=== PATIENT | male | born 1965 ===

== ENCOUNTER → 2017-01-03 | Outpatient (CLI) | payer BC ==
--- NOTE | 2017-01-03 07:37 | US ---
EXAMINATION TYPE: US kidneys/renal and bladder DATE OF EXAM: 01/03/2017 7:24 AM COMPARISON:See PACS CT abdomen April 06, 2016. CLINICAL HISTORY: Elevated Potassium E87.5. EXAM MEASUREMENTS: Echogenic circular structure noted in liver. Right Kidney: 9.8 x 5.8 x 6.0 cm Left Kidney: 9.7 x 5.1 x 5.4 cm TECHNOLOGIST IMPRESSION: wnl Right Kidney: No hydronephrosis or masses seen, inferior pole somewhat obscured by bowel gas Left Kidney: No hydronephrosis or masses seen, inferior pole somewhat obscured by bowel gas Bladder: wnl There is no evidence for hydronephrosis at this point in time. No nephrolithiasis is seen. No luz marina s are identified on images saved. Evaluation of lower poles noted suboptimal due to shadowing from hetal wel gas bilaterally per technologist The urinary bladder is anechoic. Bilateral ureteral jets are no t seen. The technologist notes a 1.2 cm round hyperechoic structure likely corresponding to hypodense lesion on CT right hepatic lobe too small to further characterize favor small hemangioma. IMPRESSION: No hydronephrosis is evident bilaterally.
== END | disposition home or self-care (01) ==
LOC: RADUSWWP 06:58
PROVIDERS: ATTEND Family Medicine
DX: E87.5 Hyperkalemia (principal)
CPT/HCPCS: 76770

== ENCOUNTER → 2017-09-26 | Outpatient (CLI) | payer BC ==
--- NOTE | 2017-09-26 19:13 | CT ---
EXAMINATION TYPE: CT angio chest DATE OF EXAM: 09/26/2017 COMPARISON: 08/30/2016 HISTORY: Patient poor historian. Patient has no complaints at time of service. Patient had prior he art/aorta surgery. Bicuspid aortic valve. CT DLP: 843 mGycm CONTRAST: CTA thoracic aorta with 3-D reconstruction is performed and without and with IV Contrast, patient inj ected with 100 mL of Omnipaque 350. Contrast CTA of the thoracic aorta was performed from the lung apex through the upper abdomen. 3D re construction imaging obtained at a separate workstation. CT Chest: THORACIC AORTA: Again noted is postsurgical change of ascending thoracic aorta. There is ascending th oracic aortic aneurysm stable at 4.3 cm AP dimension. No evidence for complicating factor. No evidenc e for dissection. Aortic arch and descending thoracic aorta are of normal caliber. LUNGS: The lungs are clear and free of infiltrate or atelectasis. No pulmonary nodule or mass is det ected. No pleural effusion or CT evidence of interstitial lung disease. MEDIASTINUM: No evidence for mediastinal hematoma. The heart is not enlarged. No evidence for med iastinal mass or adenopathy. HILAR STRUCTURES: No evidence for mass. No hilar adenopathy is appreciated. OTHER: No significant abnormality. IMPRESSION- Stable ascending thoracic aortic aneurysm.
== END | disposition home or self-care (01) ==
LOC: RADCTMAIN 17:00
PROVIDERS: ATTEND Internal Medicine Interventional Cardiology
DX: I71.2 Thoracic aortic aneurysm, without rupture (principal)
CPT/HCPCS: 71275; Q9967

== ENCOUNTER → 2019-03-13 | Outpatient (CLI) | payer BC ==
--- NOTE | 2019-03-14 09:49 | CT ---
EXAMINATION TYPE: CT angio thor/abd pel aorta DATE OF EXAM: 03/13/2019 COMPARISON: 09/26/2017 and 04/06/2016 HISTORY: AAA, congenital insufficiency of aortic valve CT DLP: 915.1 mGycm. Automated Exposure Control for Dose Reduction was Utilized. CONTRAST: CT scan of the thorax, abdomen and pelvis is performed with IV Contrast, patient injected with 100 mL of Isovue 370. 3-D reformats of the vascular were performed at a separate workstation and submitted for review. FINDINGS: LUNGS: There is a new left 3 mm pulmonary nodule on series 5 image 27 that appears more conspicuous w hen measured on series 8 image 59 (coronal as there is a vague groundglass opacity measuring 8.7 mm. Minimal bibasilar dependent subsegmental atelectasis is seen. No pulmonary masses, focal consolidatio ns, or pleural effusion. No pneumothorax. The tracheobronchial tree is patent. MEDIASTINUM: The aortic root measures 4.4 cm and ascending thoracic aorta measures 4.4 cm. There is s imilar aneurysmal dilatation of the ascending thoracic aorta as this measured 4.3 cm the prior exam o f 09/26/2017. The unenhanced images demonstrate no evidence of intramural hematoma. Annuloplasty has b een performed of the aorta. There are no greater than 1 cm hilar or mediastinal lymph nodes. Heart is mildly enlarged without pericardial effusion. Small hiatal hernia seen within the posterior mediasti num. Very few punctate coronary artery calcifications are seen. OTHER: There are median sternotomy wires. LIVER/GB: Angiographic phase of the examination limits evaluation of the liver. However, no focal hep atic mass nor intrahepatic biliary ductal dilatation are seen. No radiopaque calculi in the gallbladd er. PANCREAS: No significant abnormality is seen. SPLEEN: Unremarkable. ADRENALS: No nodularity or thickening. KIDNEYS: Kidneys enhance symmetrically. No hydronephrosis. BOWEL: There is redundancy of the sigmoid colon and moderate degree fecal stasis, limiting evaluation of the bowel. Stomach displays circumferential wall thickening in the fundus and upper body however this likely relates to incomplete distention and peristalsis. If there is further concern endoscopy c ould be performed. GENITAL ORGANS: No gross abnormality seen. LYMPH NODES: No greater than 1cm abdominal or pelvic lymph nodes are appreciated. OSSEOUS STRUCTURES: There is some sclerosis of the pubic bone and femoral acetabular joints, likely o n a degenerative basis. Nonspecific 6 mm sclerotic focus is seen within the right hemisacrum. Multile lucas facet arthropathy is seen throughout the lumbar spine. VASCULAR: The ostia of the celiac artery, superior mesenteric artery, and renal arteries are patent. The inferior mesenteric artery also appears patent and unremarkable. Common iliac arteries, internal iliac arteries and external iliac arteries are patent and nonaneurysmal. IMPRESSION: 1. Similar aneurysmal dilatation of the aortic root and ascending thoracic aorta both measuring 4.4 c m. 2. New left-sided pulmonary nodule measuring 3 mm on axial images however groundglass opacity measuri ng up to 8.7 mm is seen on coronal images surrounding this nodule and therefore short-term follow-up in 6 months is recommended for reevaluation.
== END | disposition home or self-care (01) ==
LOC: RADCTMAIN 17:10
PROVIDERS: ATTEND Internal Medicine Interventional Cardiology
DX: I71.2 Thoracic aortic aneurysm, without rupture (principal); R91.1 Solitary pulmonary nodule; Q23.1 Congenital insufficiency of aortic valve
CPT/HCPCS: 71275; 74174; Q9967

== ENCOUNTER 2019-07-16 13:44 | Emergency (ER) | payer BC ==
[2019-07-16 14:01] VITALS: BP 123/76; RESP 16; TEMP 97.3
--- NOTE | 2019-07-16 14:21 | ED ---
General Adult HPI - General Chief complaint: Extremity Injury, Upper Stated complaint: Shoulder pain Source: patient, RN notes reviewed, old records reviewed Mode of arrival: ambulatory Limitations: no limitations - History of Present Illness Initial comments: 54-year-old male patient passed medical history of hypertension, grafting of ascending aortic aneurysm presents ED chief complaint of right shoulder pain for approximately 5 days. 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 Patient reports that range of motion, working makes his pain worse. Patient denies any pain at rest. Patient denies any chest pain shortness of breath. Patient denies any recent falls or trauma. Systemic: Pt denies fatigue, fever/chills, rash. Pt denies weakness, night sweats, weight loss. Neuro: Pt denies headache, visual disturbances, syncope or pre-syncope. HEENT: Pt denies ocular discharge or irritation, otalgia, rhinorrhea, phary ngitis or notable lymphadenopathy. Cardiopulmonary: Pt denies chest pain, SOB, heart palpitations, dyspnea on exertion. Abdominal/GI: Pt denies abdominal pain, n/v/d. : Pt denies dysuria, burning w/ urination, frequency/urgency. Denies new onset urinary or bowel incontinence. MSK: Pt denies myalgia, loss of strength or function in extremities. Neuro: Pt denies new onset weakness, paresthesias. - Related Data Home Medications Medication Instructions Recorded Confirmed Enalapril Maleate [Vasotec] 10 mg PO BID 03/29/15 07/16/19 Aspirin EC [Ecotrin Low Dose] 81 mg PO DAILY 07/16/19 07/16/19 Atenolol [Tenormin] 25 mg PO DAILY 07/16/19 07/16/19 LORazepam [Ativan] 1 mg PO DAILY 07/16/19 07/16/19 Pravastatin Sodium [Pravachol] 10 mg PO HS 07/16/19 07/16/19 Allergies Allergy/AdvReac Type Severity Reaction Status Date / Time atenolol Allergy Rash/Hives Verified 07/16/19 14:10 enalapril maleate Allergy Rash/Hives Verified 07/16/19 14:10 [From Vasotec] enalaprilat dihydrate Allergy Rash/Hives Verified 07/16/19 14:10 [From Vasotec] Review of Systems ROS Statement: Those systems with pertinent positive or pertinent negative responses have been documented in the HPI. ROS Other: All systems not noted in ROS Statement are negative. Past Medical History Past Medical History: Hyperlipidemia, Hypertension History of Any Multi-Drug Resistant Organisms: None Reported Additional Past Surgical History / Comment(s): Ascending Aortic Aneurysm graft Past Psychological History: Anxiety Smoking Status: Never smoker Past Alcohol Use History: Daily Past Drug Use History: None Reported General Exam - General Exam Comments Initial Comments: Constitutional: NAD, AOX3, Pt has pleasant affect. HEENT: NC/AT, trachea midline, neck supple, no lymphadenopathy. Posterior pharynx non erythematous, without exudates. External ears appear normal, without discharge. Mucous membranes moist. Eyes PERRLA, EOM intact. There is no scleral icterus. No pallor noted. Cardiopulmonary: RRR, no murmurs, rubs or gallops, no JVD noted. Lungs CTAB in anterior and posterior davila. No peripheral edema. Abdominal exam: Abdomen soft and non-distended. Abdomen non-tender to palpation in all 4 quadrants. Bowel sounds active in LLQ. No hepatosplenomegaly. No ecchymosis Neuro: CN II-XII grossly intact. No nuchal rigidity. No raccon eyes, no wu sign, no hemotympanum. No cervical spinal tenderness. MSK: R Painful arc positive. Shoulder mild tenderness to palpation and posterior aspect. Full active range of motion. Pulses intact and equal, capillary refill less than 2 seconds. No posterior calf tenderness bilaterally, homans sign negative bilaterally. Posterior tibialis and radial pulse +2 bilaterally. Sensation intact in upper and lower extremities. Full active ROM in upper and lower extremities, 5/5 stregnth. Limitations: no limitations Course Vital Signs 07/16/19 13:56 Temperature 97.3 F L Pulse Rate 52 L Respiratory 16 Rate Blood Pressure 123/76 O2 Sat by Pulse 100 Oximetry Medical Decision Making - Medical Decision Making 54-year-old male patient passed medical history of hypertension, grafting of ascending aortic aneurysm presents ED chief complaint of right shoulder pain for approximately 5 days. 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 Patient reports that range of motion, working makes his pain worse. Patient denies any pain at rest. Patient denies any chest pain shortness of breath. Patient denies any recent falls or trauma. Patient vital signs stable, afebrile. Physical exam displayed: R Painful arc positive. Shoulder mild tenderness to palpation and posterior aspect. Full active range of motion. Pulses intact and equal, capillary refill less than 2 seconds. No posterior calf tenderness bilaterally, homans sign negative bilaterally. Posterior tibialis and radial pulse +2 bilaterally. Sensation intact in upper and lower extremities. Full active ROM in upper and lower extremities, 5/5 stregnth. Plain film of scapula and shoulders displayed AC joint arthropathy. Patient discharged with orthopedic follow-up. Return precautions discussed. Case discussed with Dr. South. Disposition Clinical Impression: Shoulder pain Disposition: HOME SELF-CARE Condition: Stable Instructions (If sedation given, give patient instructions): Musculoskeletal Pain (ED) Additional Instructions: Patient to adhere to previously discussed treatment plan and will take medication(s) as directed. Patient to follow up with PCP in 1-2 days. Patient to return to ED if symptoms do not improve. Follow-up with primary care provider and orthopedic consult tomorrow. Use Tylenol and Motrin as needed for pain. Return to ER if condition worsens. Is patient prescribed a controlled substance at d/c from ED?: No Referrals: Thiago Fernandez MD [Primary Care Provider] - 1-2 days Isauro Pérez MD [STAFF PHYSICIAN] - 1-2 days
--- NOTE | 2019-07-16 14:31 | XR ---
EXAMINATION TYPE: XR shoulder complete RT DATE OF EXAM: 07/16/2019 COMPARISON: NONE HISTORY: Pain TECHNIQUE: Three views are submitted. FINDINGS: The osseous structures are intact. There is no acute fracture or dislocation. Arthropathy of the AC joint IMPRESSION: 1. AC joint arthropathy
--- NOTE | 2019-07-16 14:32 | XR ---
EXAMINATION TYPE: XR scapula RT DATE OF EXAM: 07/16/2019 COMPARISON: NONE HISTORY: Pain TECHNIQUE: 2 views submitted FINDINGS: AC joint arthropathy noted. Osseous structures intact. IMPRESSION: AC joint arthropathy
[2019-07-16 15:24] VITALS: PULSE 62
== END 2019-07-16 15:24 | disposition home or self-care (01) ==
LOC: EC 13:44
DX: M25.511 Pain in right shoulder (principal); M12.811 Other specific arthropathies, not elsewhere classified, right shoulder; E78.5 Hyperlipidemia, unspecified; I10 Essential (primary) hypertension; F41.9 Anxiety disorder, unspecified; Z88.8 Allergy status to other drugs, medicaments and biological substances; Z79.82 Long term (current) use of aspirin; Z79.899 Other long term (current) drug therapy; Z86.79 Personal history of other diseases of the circulatory system; Z95.818 Presence of other cardiac implants and grafts; X50.0XXA Overexertion from strenuous movement or load, initial encounter
CPT/HCPCS: 99284

== ENCOUNTER 2019-11-28 15:46 | Emergency (ER) | payer BC ==
[2019-11-28 16:03] VITALS: BP 180/85; PULSE 74; RESP 20; TEMP 99.4
[2019-11-28] MEDS ORDERED: ACETAMINOPHEN TAB 325 MG TAB PO STA (16:07)
--- NOTE | 2019-11-28 16:25 | XR ---
EXAMINATION TYPE: XR chest 2V DATE OF EXAM: 11/28/2019 COMPARISON: Chest x-ray June 01, 2015. CTA March 13, 2019 HISTORY: Cough for one day. TECHNIQUE: Frontal and lateral views of the chest are obtained. FINDINGS: Overlying sternal wires are redemonstrated. There is no focal air space opacity, pleural ef fusion, or pneumothorax seen. The cardiac silhouette size remains enlarged. The osseous structures are intact. IMPRESSION: Cardiomegaly without new suspicious acute pulmonary process.
--- NOTE | 2019-11-28 17:01 | ED ---
URI HPI - General Chief Complaint: Upper Respiratory Infection Stated Complaint: cough/congestion Time Seen by Provider: 11/28/19 16:06 Source: patient Mode of arrival: ambulatory Limitations: no limitations - History of Present Illness Initial Comments: 54-year-old male presenting today for chief complaint of cough congestion chills bodyaches x 24 hours. Patient states that he has had a cough congestion chills and body aches the past 24 hours he states it feels as though he has had a fever but has not recorded his temperature. Patient states that the cough has been increasing especially at night denies hemoptysis, chest pain, shortness of breath like swelling nausea vomiting abdominal pain or diarrhea. Patient denies any throat or ear pain. Patient was concerned he has influenza and presented to the ER for evaluation. patient denies any other complaints. On arrival appears nontoxic. HR WNL. No signs of distress. Afebrile. No medications taken prior to arrival such an antipyretics. - Related Data Home Medications Medication Instructions Recorded Confirmed Enalapril Maleate [Vasotec] 10 mg PO BID 03/29/15 07/16/19 Aspirin EC [Ecotrin Low Dose] 81 mg PO DAILY 07/16/19 07/16/19 Atenolol [Tenormin] 25 mg PO DAILY 07/16/19 07/16/19 LORazepam [Ativan] 1 mg PO DAILY 07/16/19 07/16/19 Pravastatin Sodium [Pravachol] 10 mg PO HS 07/16/19 07/16/19 Previous Rx's Medication Instructions Recorded Azithromycin [Zithromax Z-pack] 0 mg PO DIRECTED #6 tab 11/28/19 Allergies Allergy/AdvReac Type Severity Reaction Status Date / Time atenolol Allergy Rash/Hives Verified 11/28/19 16:03 enalapril maleate Allergy Rash/Hives Verified 11/28/19 16:03 [From Vasotec] enalaprilat dihydrate Allergy Rash/Hives Verified 11/28/19 16:03 [From Vasotec] Review of Systems ROS Statement: Those systems with pertinent positive or pertinent negative responses have been documented in the HPI. ROS Other: All systems not noted in ROS Statement are negative. Past Medical History Past Medical History: Hyperlipidemia, Hypertension History of Any Multi-Drug Resistant Organisms: None Reported Additional Past Surgical History / Comment(s): Ascending Aortic Aneurysm graft Past Psychological History: Anxiety Smoking Status: Never smoker Past Alcohol Use History: Occasional Past Drug Use History: None Reported General Exam - General Exam Comments Initial Comments: General: The patient is awake and alert, in no distress, appears nontoxic. Eye: +3 mm pupils are equal, round and reactive to light, extra-ocular movements are intact. No nystagmus. There is normal conjunctiva bilaterally. No signs of icterus. No photophobia Ears, nose, mouth and throat: There are moist mucous membranes and no oral lesions. Oropharynx was mildly erythematous there is no tonsillar enlargement exudates or lesions. Uvula midline. Tympanic membranes are not erythematous or is no effusions bulging or retraction. No tenderness to palpation of the mastoid. No anterior cervical lymphadenopathy. Rhinorrhea, clear and bilateral nares. No tripoding, no drooling. Neck: The neck is supple, there is no tenderness or JVD. No nuchal rigidity Cardiovascular: There is a regular rate and rhythm. No murmur, rub or gallop is appreciated. Respiratory: Lungs are clear to auscultation, respirations are non-labored, breath sounds are equal. No wheezes, stridor, rales, or rhonchi. No retractions or abdominal breathing. Gastrointestinal: Soft, non-distended, non-tender abdomen without masses or organomegaly noted. There is no rebound or guarding present. Bowel sounds are unremarkable. Musculoskeletal: Normal ROM, no tenderness. Strength 5/5. Sensation intact. Radial pulses equal bilaterally 2+. Neurological: A&O x 3. CN II-XII intact grossly, There are no obvious motor or sensory deficits. Coordination appears grossly intact. Speech appears normal, no muffling. Skin: Skin is warm and dry and no rashes or lesions are noted. No extremity edema Psychiatric: Cooperative Limitations: no limitations Course Vital Signs 11/28/19 16:00 Temperature 99.4 F Pulse Rate 74 Respiratory 20 Rate Blood Pressure 180/85 O2 Sat by Pulse 97 Oximetry Medical Decision Making - Medical Decision Making 54-year-old male presenting for cough congestion and body aches. Concern for influenza. Denies chest pain shortness of breath. Influenza negative. Chest x-ray clear of focalized infiltrates, no acute process appreciated. Patient is not immunocompromised. Has obvious URI symptoms. After discussing case/patient VS and PMH with attending Dr. Pena we feel at this time patient is stable for discharge with close PCP f/u and strict return parameters. Patient is agreeable to this care plan and was discharged appearing well with azithromycin. - Lab Data Lab Results 11/28/19 Range/Units 16:10 Influenza Type A RNA Not Detected (Not Detectd) Influenza Type B (PCR) Not Detected (Not Detectd) Disposition Clinical Impression: Cough, Congestion of nasal sinus, Body aches Disposition: HOME SELF-CARE Condition: Good Instructions (If sedation given, give patient instructions): Upper Respiratory Infection (ED) Additional Instructions: Please use medication as discussed. Please follow-up with family doctor in the next 2 days. Please return to emergency room if the symptoms increase or worsen or for any other concerns-persistent fever, chest pain, SOB, worsening symptoms- return to ER. Prescriptions: Azithromycin [Zithromax Z-pack] 0 mg PO DIRECTED #6 tab Is patient prescribed a controlled substance at d/c from ED?: No Referrals: Thiago Fernandez MD [Primary Care Provider] - 1-2 days Time of Disposition: 16:59
== END 2019-11-28 17:15 | disposition home or self-care (01) ==
LOC: EC 15:46
DX: R05 Cough (principal); R09.81 Nasal congestion; R52 Pain, unspecified; E78.5 Hyperlipidemia, unspecified; I10 Essential (primary) hypertension; F41.9 Anxiety disorder, unspecified; Z79.82 Long term (current) use of aspirin; Z79.899 Other long term (current) drug therapy; Z88.8 Allergy status to other drugs, medicaments and biological substances
CPT/HCPCS: 71046; 87502; 99283

== ENCOUNTER → 2021-03-22 | Outpatient (CLI) | payer BC ==
--- NOTE | 2021-03-22 21:16 | CT ---
EXAMINATION TYPE: CT angio chest DATE OF EXAM: 03/22/2021 COMPARISON: 09/26/2017 HISTORY: Follow up for thoracic aortic aneurysm. CT DLP: 667.4 mGycm CONTRAST: CTA thoracic aorta with 3-D reconstruction is performed and without and with IV Contrast, patient inj ected with 100ml mL of Isovue 370. Contrast CTA of the thoracic aorta was performed from the lung apex through the upper abdomen. 3D re construction imaging obtained at a separate workstation. CT Chest: THORACIC AORTA: 4.3 cm ascending thoracic aortic aneurysm unchanged from prior study of 4.3 cm as wel l. Postsurgical change noted of the ascending thoracic aorta. The remainder of the thoracic aorta inc luding the arch and descending components are of normal caliber. LUNGS: The lungs are clear and free of infiltrate or atelectasis. No pulmonary nodule or mass is det ected. No pleural effusion or CT evidence of interstitial lung disease. MEDIASTINUM: No evidence for mediastinal hematoma. The heart is not enlarged. No evidence for med iastinal mass or adenopathy. HILAR STRUCTURES: No evidence for mass. No hilar adenopathy is appreciated. OTHER: No significant abnormality. IMPRESSION- Stable ascending thoracic aortic aneurysm.
== END | disposition home or self-care (01) ==
LOC: RADCTMAIN 18:45
PROVIDERS: ATTEND Internal Medicine Interventional Cardiology
DX: I71.2 Thoracic aortic aneurysm, without rupture (principal)
CPT/HCPCS: 71275; Q9967

== ENCOUNTER → 2021-04-07 | Outpatient (CLI) | payer BC ==
--- NOTE | 2021-04-08 04:53 | MR ---
EXAMINATION TYPE: MR kidney wo/w con DATE OF EXAM: 04/07/2021 COMPARISON: Renal ultrasound 01/03/2017. HISTORY: Hypertension. CONTRAST: Standard multiplanar, multisequence MRI departmental protocol utilizing 8 mL intravenous Gadavist sherie olinium contrast. Kidneys have fairly normal size and contour. Right kidney measures 10.8 cm in length. Left kidney waylon sures 9.9 cm in length. There is no hydronephrosis. There is no evidence of a renal mass. There is no adrenal mass. Liver and gallbladder appear intact. The bile ducts are not dilated. There is 10 mm rounded area of f luid signal in the posterior right lobe of the liver without enhancement and consistent with simple h epatic cyst. The spleen is intact. Pancreas appears normal. Pancreatic duct is normal. The bile ducts are not dilated. The stomach is intact. There is no evidence of pleural effusion. There is no sign o f pericardial effusion. There is no sign of retroperitoneal adenopathy. There is no ascites. There is no sign of a bowel obst ruction. Contrast images show normal enhancement of the kidneys. There is normal enhancement of the p ortal venous system. IMPRESSION: Kidneys appear normal. No evidence of renal mass or obstruction. No renal atrophy.
== END | disposition home or self-care (01) ==
LOC: RADMRIMAIN 18:09
PROVIDERS: ATTEND Internal Medicine
DX: I10 Essential (primary) hypertension (principal)
CPT/HCPCS: 74183; A9585

== ENCOUNTER 2022-03-08 16:10 | Emergency (ER) | payer BC ==
[2022-03-08 16:41] VITALS: BP 145/76; PULSE 63; RESP 18; TEMP 98.7
[2022-03-08] MEDS ORDERED: KETOROLAC 15 MG/ML 1 ML VIAL IM STA (17:02)
[2022-03-08] MEDS ORDERED: DEXAMETHASONE SOD PHOSPHATE 10 MG/ML 1 ML VIAL IM STA (17:02)
--- NOTE | 2022-03-08 17:29 | ED ---
General Adult HPI - General Chief complaint: Extremity Injury, Lower Stated complaint: Right Leg Pain and weakness Time Seen by Provider: 03/08/22 16:43 Source: patient Mode of arrival: ambulatory - History of Present Illness Initial comments: Patient is a 57-year-old male presenting with chief complaint of right thigh pain. Pain started approximately one week ago, states that as the week has gone on the pain has become more consistent. It is a sharp stabbing pain that comes on when standing or walking. Located primarily on the anterior and lateral thigh. Once patient is sitting and resting the pain dissipates. Patient denies any trauma or injury. Denies any numbness, tingling, weakness. He has not been taking supportive treatment at home such as [id number] pain medication. No pain below the knee or above the hip. Patient states he has full range of motion of the hip and no loss of sensation. - Related Data Home Medications Medication Instructions Recorded Confirmed Enalapril Maleate [Vasotec] 10 mg PO BID 03/29/15 03/08/22 Aspirin EC [Ecotrin Low Dose] 81 mg PO DAILY 07/16/19 03/08/22 LORazepam [Ativan] 1 mg PO BID 07/16/19 03/08/22 atenoloL [Tenormin] 25 mg PO DAILY 07/16/19 03/08/22 Pravastatin Sodium [Pravachol] 20 mg PO HS 03/08/22 03/08/22 Vitamin D3 1.25 Mg 1.25 mg PO Q90D 03/08/22 03/08/22 amLODIPine [Norvasc] 2.5 mg PO DAILY 03/08/22 03/08/22 Previous Rx's Medication Instructions Recorded Cyclobenzaprine [Flexeril] 10 mg PO TID PRN #20 tab 03/08/22 methylPREDNISolone [Medrol Dose 4 mg PO DIRECTED #1 packet 03/08/22 Pack] Allergies Allergy/AdvReac Type Severity Reaction Status Date / Time atenolol Allergy Rash/Hives, Verified 03/08/22 17:50 (Generic only, can tolerate brand name) enalapril maleate Allergy Rash/Hives, Verified 03/08/22 17:50 [From Vasotec] (Generic only, can tolerate brand name) enalaprilat dihydrate Allergy Rash/Hives, Verified 03/08/22 17:50 [From Vasotec] (Generic only, can tolerate brand name) Review of Systems ROS Statement: Those systems with pertinent positive or pertinent negative responses have been documented in the HPI. ROS Other: All systems not noted in ROS Statement are negative. Past Medical History Past Medical History: Hyperlipidemia, Hypertension History of Any Multi-Drug Resistant Organisms: None Reported Additional Past Surgical History / Comment(s): Ascending Aortic Aneurysm graft Past Psychological History: Anxiety Smoking Status: Never smoker Past Alcohol Use History: Occasional Past Drug Use History: None Reported General Exam Limitations: no limitations General appearance: alert, in no apparent distress Head exam: Present: atraumatic, normocephalic, normal inspection Eye exam: Present: normal appearance, EOMI. Absent: scleral icterus Neck exam: Present: normal inspection Extremities exam: Present: normal inspection, full ROM. Absent: tenderness, pedal edema, joint swelling Neurological exam: Present: alert, oriented X3, CN II-XII intact Psychiatric exam: Present: normal affect, normal mood Skin exam: Present: warm, dry, intact, normal color. Absent: rash Course Vital Signs 03/08/22 16:35 Temperature 98.7 F Pulse Rate 63 Respiratory 18 Rate Blood Pressure 145/76 O2 Sat by Pulse 98 Oximetry Medical Decision Making - Medical Decision Making Patient is a 57-year-old male presenting with chief complaint of right thigh pain. Pain is been persistent for 3 days, pain is brought on by a standing or ambulating. It is sharp in character and relieved with rest. It is located primarily on the anterior lateral surface of the thigh. Does not extend beyond the hip or knee. On examination patient has full range of motion of the hip and knee. No tenderness on palpation, full sensation intact. X-ray shows no acute osseous pathology. Mild osteoarthritic changes of the hip. 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 Educated the patient on these findings. In the ER the patient was given Toradol, Decadron, and Norflex. He is being sent home with a prescription for cyclobenzaprine and a Medrol Dosepak. Follow-up with PCP this week. Report back to ER with any worsening symptoms. He may take Motrin, Tylenol, or apply heat or ice for pain control. I educated the patient on return parameters and answered all questions. Patient conveyed verbal understanding and agreed to the plan. - Radiology Data Radiology results: report reviewed X-ray shows no acute osseous pathology. Mild osteoarthritic changes of the hip. 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 Disposition Clinical Impression: Spasm of muscle Disposition: HOME SELF-CARE Condition: Good Additional Instructions: Follow-up with primary care this week. Inform PCP of findings suggestive of osteopath striata of distal right femur at follow up. Take medication as prescribed. Report back to ER with any worsening symptoms, including but not limited to increased pain, loss of range of motion, loss of sensation. Prescriptions: Cyclobenzaprine [Flexeril] 10 mg PO TID PRN #20 tab PRN Reason: Muscle Spasm methylPREDNISolone [Medrol Dose Pack] 4 mg PO DIRECTED #1 packet Is patient prescribed a controlled substance at d/c from ED?: No Referrals: Thiago Fernandez MD [Primary Care Provider] - 1-2 days Time of Disposition: 18:40
--- NOTE | 2022-03-08 18:10 | XR ---
EXAMINATION TYPE: XR femur RT DATE OF EXAM: 03/08/2022 5:14 PM INDICATION: Patient age:Male; 57 years old; Reason for study: Pain; COMPARISON: None TECHNIQUE: The right femur was examined in AP lateral and oblique. projections. FINDINGS: There are vertical lines through the femur most pronounced distal femur. No evidence of acu te osseous pathology, joint dislocation, or soft tissue swelling. Quadriceps enthesophyte noted at th e superior patella. Mild degenerative changes of the right hip with osteophyte formation present.. IMPRESSION: 1. No acute osseous pathology. 2. Mild osteoarthritic changes of the hip. 3. 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
[2022-03-08] MEDS ORDERED: ORPHENADRINE 30 MG/ML 2 ML VIAL IVP STA (18:18)
[2022-03-08] MEDS ORDERED: ORPHENADRINE 30 MG/ML 2 ML VIAL IM STA (18:29)
== END 2022-03-08 18:53 | disposition home or self-care (01) ==
LOC: EC 16:10
DX: M62.838 Other muscle spasm (principal); I10 Essential (primary) hypertension; Z88.8 Allergy status to other drugs, medicaments and biological substances
CPT/HCPCS: 73552; 99284; 96372; J1100; J2360; J1885

== ENCOUNTER → 2022-03-24 | Outpatient (CLI) | payer BC ==
--- NOTE | 2022-03-25 07:20 | CT ---
EXAMINATION TYPE: CT angio chest DATE OF EXAM: 03/24/2022 COMPARISON: 03/22/2021 HISTORY: Postprocedural state. Patient has no complaints at time of scan. History of aortic graft. CT DLP: 1043 mGycm CONTRAST: CTA thoracic aorta with 3-D reconstruction is performed and without and with IV Contrast, patient inj ected with 100ml mL of Isovue 370. Contrast CTA of the thoracic aorta was performed from the lung apex through the upper abdomen. 3D re construction imaging obtained at a separate workstation. CT Chest: THORACIC AORTA: Postoperative changes redemonstrated ascending thoracic aorta. Aortic root measures 3 .7 cm. Ascending thoracic aorta measures 4.4 cm versus 4.3 cm previously. Aortic arch and descending thoracic aorta are of normal caliber. No evidence for para-aortic hematoma. No dissection evident. LUNGS: The lungs are clear and free of infiltrate or atelectasis. No pulmonary nodule or mass is det ected. No pleural effusion or CT evidence of interstitial lung disease. MEDIASTINUM: No evidence for mediastinal hematoma. The heart is enlarged. No evidence for mediast inal mass or adenopathy. HILAR STRUCTURES: No evidence for mass. No hilar adenopathy is appreciated. OTHER: No significant abnormality. IMPRESSION- Stable ascending thoracic aortic aneurysm and thoracic aortic graft.
== END | disposition home or self-care (01) ==
LOC: RADCTMAIN 15:25
PROVIDERS: ATTEND Internal Medicine Interventional Cardiology
DX: Z98.890 Other specified postprocedural states (principal)
CPT/HCPCS: 71275; Q9967

== ENCOUNTER → 2023-02-11 | Outpatient (CLI) | payer BC ==
[2023-02-11 17:42] LABS: African American GFR (CKD) 103.4 (60.0-200.0); Anion Gap 12.4 mmol/L (10.00-18.00); BUN/Creat Ratio 17.8 Ratio (12.00-20.00); Blood Urea Nitrogen 16.8 mg/dL (9.0-27.0); Calcium 9.6 mg/dL (8.7-10.3); Carbon Dioxide 23.6 mmol/L (20.0-27.5); Non-African American GFR(CKD) 89.2 (60.0-200.0)
== END | disposition home or self-care (01) ==
LOC: LABWHC1 08:02
PROVIDERS: ATTEND Nurse Practitioner
DX: I10 Essential (primary) hypertension (principal)
CPT/HCPCS: 36415; 80048

== ENCOUNTER 2023-06-28 13:55 | Emergency (ER) | payer BC ==
[2023-06-28] MEDS ORDERED: LORazepam 2 MG/ML INJ IV STA (14:27)
--- NOTE | 2023-06-28 14:27 | ED ---
General Adult HPI - General Chief complaint: Arrhythmia/Palpitations Stated complaint: poss panic attack - tachycardia Time Seen by Provider: 06/28/23 14:05 Source: patient, RN notes reviewed, old records reviewed Mode of arrival: ambulatory Limitations: no limitations - History of Present Illness Initial comments: This is a 58-year-old male who presents to the emergency department complaining that he has a history of anxiety and something at work was very embarrassing to him and he just felt like he needs to get out of the place. Patient states he felt like his heart rate raced a little but not really pounding hard. Patient denies chest pain. Patient denies difficulty breathing or shortness of breath per patient denies any lightheadedness or dizziness. Patient thinks it's just a little bit of a panic attack but he wanted come in and check it out. Patient states his bicuspid aortic valve and needs to be replaced and he states he had repair on his aortic aneurysm and he is starting to develop a second aneurysm secondary to the aortic stenosis. Patient denies lightheadedness dizziness. Patient denies having pain anywhere. - Related Data Home Medications Medication Instructions Recorded Confirmed Enalapril Maleate [Vasotec] 10 mg PO BID 03/29/15 06/28/23 Aspirin EC [Ecotrin Low Dose] 81 mg PO DAILY 07/16/19 06/28/23 LORazepam [Ativan] 1 mg PO DAILY 07/16/19 06/28/23 atenoloL [Tenormin] 25 mg PO DAILY 07/16/19 06/28/23 Pravastatin Sodium [Pravachol] 20 mg PO HS 03/08/22 06/28/23 amLODIPine [Norvasc] 2.5 mg PO DAILY 03/08/22 06/28/23 Cholecalciferol (Vitamin D3) 1,250 mcg PO Q30D 06/28/23 06/28/23 [Decara (50,000 Iu)] Allergies Allergy/AdvReac Type Severity Reaction Status Date / Time atenolol Allergy Rash/Hives, Verified 06/28/23 14:34 (Generic only, can tolerate brand name) enalapril maleate Allergy Rash/Hives, Verified 06/28/23 14:34 [From Vasotec] (Generic only, can tolerate brand name) enalaprilat dihydrate Allergy Rash/Hives, Verified 06/28/23 14:34 [From Vasotec] (Generic only, can tolerate brand name) Review of Systems ROS Statement: Those systems with pertinent positive or pertinent negative responses have been documented in the HPI. ROS Other: All systems not noted in ROS Statement are negative. Past Medical History Past Medical History: Hyperlipidemia, Hypertension History of Any Multi-Drug Resistant Organisms: None Reported Additional Past Surgical History / Comment(s): Ascending Aortic Aneurysm graft Past Psychological History: Anxiety Smoking Status: Never smoker Past Alcohol Use History: Occasional Past Drug Use History: None Reported General Exam - General Exam Comments Initial Comments: nGENERAL: Patient is well-developed and well-nourished. Patient is nontoxic and well- hydrated and is in no acute distress. ENT: Neck is soft and supple. No significant lymphadenopathy is noted. Oropharynx is clear. Moist mucous membranes. Neck has full range of motion without eliciting any pain. EYES: The sclera were anicteric and conjunctiva were pink and moist. Extraocular movements were intact and pupils were equal round and reactive to light. Eyelids were unremarkable. PULMONARY: Unlabored respirations. Good breath sounds bilaterally. No audible rales rhonchi or wheezing was noted. CARDIOVASCULAR: There is a regular rate and rhythm without any murmurs gallops or rubs. ABDOMEN: Soft and nontender with normal bowel sounds. SKIN: Skin is clear with no lesions or rashes and otherwise unremarkable. NEUROLOGIC: Patient is alert and oriented x3. Cranial nerves II through XII are grossly intact. Motor and sensory are also intact. Normal speech, volume and content. Symmetrical smile. MUSCULOSKELETAL: Normal extremities with adequate strength and full range of motion. No lower extremity swelling or edema. No calf tenderness. LYMPHATICS: No significant lymphadenopathy is noted PSYCHIATRIC: Patient is mildly anxious Limitations: no limitations Course Vital Signs 06/28/23 06/28/23 06/28/23 14:03 14:15 14:30 Temperature 98.6 F Pulse Rate 57 L 57 L 55 L Respiratory 20 24 24 Rate Blood Pressure 156/87 167/71 161/83 O2 Sat by Pulse 99 99 99 Oximetry 06/28/23 15:00 Temperature Pulse Rate 48 L Respiratory 12 Rate Blood Pressure 161/83 O2 Sat by Pulse 98 Oximetry Medical Decision Making - Medical Decision Making EKG as interpreted by myself EKG shows A. fib and 35 bpm QRS is 100 QT interval is 440 QTC is 428. Patient's EKG shows no ST segment elevation or depression Was pt. sent in by a medical professional or institution (ALETHA Moreno, BIG DATA DEVELOPER, urgent care, hospital, or detention...) When possible be specific @ -No Did you speak to anyone other than the patient for history (EMS, parent, family, police, friend...)? What history was obtained from this source @ -I spoke with the and she was in agreement that the patient appeared to be having a panic attack Did you review nursing and triage notes (agree or disagree)? Why? @ -I reviewed and agree with nursing and triage notes Were old charts reviewed (outside hosp., previous admission, EMS record, old EKG, old radiological studies, urgent care reports/EKG's, detention records)? Report findings @ -No old charts were reviewed Differential Diagnosis (chest pain, altered mental status, abdominal pain women, abdominal pain men, vaginal bleeding, weakness, fever, dyspnea, syncope, headache, dizziness, GI bleed, back pain, seizure, CVA, palpatations, mental health, musculoskeletal)? @ -Differential Mental Health Depression, anxiety, bipolar, psychosis, schizophrenia, borderline personality, situational depression, adjustment disorder, behavioral disorder, brain tumor, malingering, substance abuse, encephalopathy, medication reaction, dementia, hypothyroidism, degenerative neurologic disorder, lupus.... This is not meant to be all-inclusive list EKG interpreted by me (3pts min.). @ -As above X-rays interpreted by me (1pt min.). @ -Chest x-ray showed no acute abnormality CT interpreted by me (1pt min.). @ -None done U/S interpreted by me (1pt. min.). @ -None done What testing was considered but not performed or refused? (CT, X-rays, U/S, labs)? Why? @ -None What meds were considered but not given or refused? Why? @ -None Did you discuss the management of the patient with other professionals (professionals i.e. ALETHA Moreno, BIG DATA DEVELOPER, lab, RT, psych nurse, social media analyst, craft center director, teacher, senior administrative services officer, porter sample case)? Give summary @ -No Was smoking cessation discussed for >3mins.? @ -No Was critical care preformed (if so, how long)? @ -No Were there social determinants of health that impacted care today? How? (Homelessness, low income, unemployed, alcoholism, drug addiction, transportation, low edu. Level, literacy, decrease access to med. care, longterm, rehab)? @ -No Was there de-escalation of care discussed even if they declined (Discuss DNR or withdrawal of care, Hospice)? DNR status @ -No What co-morbidities impacted this encounter? (DM, HTN, Smoking, COPD, CAD, Cancer, CVA, ARF, Chemo, Hep., AIDS, mental health diagnosis, sleep apnea, morbid obesity)? @ -None Was patient admitted / discharged? Hospital course, mention meds given and route, prescriptions, significant lab abnormalities, going to OR and other pertinent info. @ -Patient received an Ativan while in the emergency department and he stated he felt back to his baseline. Lab work was done and it essentially was normal and patient felt comfortable going home at this time he will follow-up and try to get a primary medical care doctor they can prescribe some Ativan. Undiagnosed new problem with uncertain prognosis? @ -No Drug Therapy requiring intensive monitoring for toxicity (Heparin, Nitro, Insu basilio, Cardizem)? @ -No Were any procedures done? @ -No Diagnosis/symptom? @ -Anxiety Acute, or Chronic, or Acute on Chronic? @ -Acute Uncomplicated (without systemic symptoms) or Complicated (systemic symptoms)? @ -Complicated Side effects of treatment? @ -No Exacerbation, Progression, or Severe Exacerbation? @ -No Poses a threat to life or bodily function? How? (Chest pain, [place], [place], pneumonia, PE, COPD, DKA, ARF, appy, cholecystitis, CVA, Diverticulitis, Homicidal, Suicidal, threat to staff... and all critical care pts) @ -No - Lab Data Result diagrams: 06/28/23 14:24 06/28/23 14:24 Lab Results 06/28/23 06/28/23 06/28/23 Range/Units 14:24 14:24 14:24 WBC 5.0 (3.8-10.6) k/uL RBC 4.41 (4.30-5.90) m/uL Hgb 11.9 L (13.0-17.5) gm/dL Hct 35.5 L (39.0-53.0) % MCV 80.5 (80.0-100.0) fL MCH 27.0 (25.0-35.0) pg MCHC 33.5 (31.0-37.0) g/dL RDW 17.8 H (11.5-15.5) % Plt Count 267 (150-450) k/uL MPV 7.3 Neutrophils % 68 % Lymphocytes % 22 % Monocytes % 8 % Eosinophils % 1 % Basophils % 1 % Neutrophils # 3.4 (1.3-7.7) k/uL Lymphocytes # 1.1 (1.0-4.8) k/uL Monocytes # 0.4 (0-1.0) k/uL Eosinophils # 0.1 (0-0.7) k/uL Basophils # 0.0 (0-0.2) k/uL Hypochromasia Slight Anisocytosis Slight Microcytosis Slight D-Dimer 0.26 (<0.60) mg/L FEU Sodium 133 L (137-145) mmol/L Potassium 3.9 (3.5-5.1) mmol/L Chloride 101 (98-107) mmol/L Carbon Dioxide 19 L (22-30) mmol/L Anion Gap 13 mmol/L BUN 16 (9-20) mg/dL Creatinine 0.87 (0.66-1.25) mg/dL Est GFR (CKD-EPI)AfAm >90 (>60 ml/min/1.73 sqM) Est GFR (CKD-EPI)NonAf >90 (>60 ml/min/1.73 sqM) Glucose 118 H (74-99) mg/dL Calcium 9.6 (8.4-10.2) mg/dL Magnesium 2.2 (1.6-2.3) mg/dL Total Bilirubin 0.7 (0.2-1.3) mg/dL AST 26 (17-59) U/L ALT 20 (4-49) U/L Alkaline Phosphatase 57 (38-126) U/L Troponin I (0.000-0.034) ng/mL Total Protein 7.2 (6.3-8.2) g/dL Albumin 4.4 (3.5-5.0) g/dL 06/28/23 Range/Units 14:24 WBC (3.8-10.6) k/uL RBC (4.30-5.90) m/uL Hgb (13.0-17.5) gm/dL Hct (39.0-53.0) % MCV (80.0-100.0) fL MCH (25.0-35.0) pg MCHC (31.0-37.0) g/dL RDW (11.5-15.5) % Plt Count (150-450) k/uL MPV Neutrophils % % Lymphocytes % % Monocytes % % Eosinophils % % Basophils % % Neutrophils # (1.3-7.7) k/uL Lymphocytes # (1.0-4.8) k/uL Monocytes # (0-1.0) k/uL Eosinophils # (0-0.7) k/uL Basophils # (0-0.2) k/uL Hypochromasia Anisocytosis Microcytosis D-Dimer (<0.60) mg/L FEU Sodium (137-145) mmol/L Potassium (3.5-5.1) mmol/L Chloride (98-107) mmol/L Carbon Dioxide (22-30) mmol/L Anion Gap mmol/L BUN (9-20) mg/dL Creatinine (0.66-1.25) mg/dL Est GFR (CKD-EPI)AfAm (>60 ml/min/1.73 sqM) Est GFR (CKD-EPI)NonAf (>60 ml/min/1.73 sqM) Glucose (74-99) mg/dL Calcium (8.4-10.2) mg/dL Magnesium (1.6-2.3) mg/dL Total Bilirubin (0.2-1.3) mg/dL AST (17-59) U/L ALT (4-49) U/L Alkaline Phosphatase (38-126) U/L Troponin I <0.012 (0.000-0.034) ng/mL Total Protein (6.3-8.2) g/dL Albumin (3.5-5.0) g/dL Disposition Clinical Impression: Acute anxiety Disposition: HOME SELF-CARE Condition: Good Instructions (If sedation given, give patient instructions): Anxiety (ED) Is patient prescribed a controlled substance at d/c from ED?: No Referrals: None,Stated [Primary Care Provider] - 1-2 days Forms: PH Area PCPs Time of Disposition: 16:03
[2023-06-28 14:32] LABS: Anisocytosis Slight; Basophils % (A) 1 %; Eosinophils # (A) 0.1 k/uL (0-0.7); Eosinophils % (A) 1 %; HCT 35.5 % (39.0-53.0); HGB 11.9 gm/dL (13.0-17.5); Hypochromasia Slight; Lymphocytes # (A) 1.1 k/uL (1.0-4.8); Lymphocytes % (A) 22 %; MCHC 33.5 g/dL (31.0-37.0); MCV 80.5 fL (80.0-100.0); Mean Platelet Volume 7.3; Microcytosis Slight; Monocytes # (A) 0.4 k/uL (0-1.0); Monocytes % (A) 8 %; Neutrophils # (A) 3.4 k/uL (1.3-7.7); Neutrophils % (A) 68 %; Platelet Count 267 k/uL (150-450); RBC 4.41 m/uL (4.30-5.90); RDW 17.8 % (11.5-15.5)
--- NOTE | 2023-06-28 14:37 | XR ---
EXAMINATION TYPE: XR chest 2V DATE OF EXAM: 06/28/2023 2:33 PM COMPARISON: Chest radiographs from 11/28/2019, CTA chest 03/24/2022 TECHNIQUE: XR chest 2V Frontal and lateral views of the chest. CLINICAL INDICATION:Male, 58 years old with history of Chest Pain; FINDINGS: Lungs/Pleura: There is no evidence of pleural effusion, focal consolidation, or pneumothorax. Pulmonary vascularity: Unremarkable. Heart/mediastinum: Cardiomediastinal silhouette is enlarged and stable. Musculoskeletal: No acute osseous pathology. Midline sternotomy wires are noted. Similar fractured lo wer sternotomy wires. IMPRESSION: Cardiomegaly without new suspicious acute pulmonary process.
[2023-06-28 14:54] LABS: ALT 20 U/L (4-49); AST 26 U/L (17-59); African American GFR (CKD) >90 (>60 ml/min/1.73 sqM); Albumin 4.4 g/dL (3.5-5.0); Alkaline Phosphatase 57 U/L (38-126); Anion Gap 13 mmol/L; Blood Urea Nitrogen 16 mg/dL (9-20); Calcium 9.6 mg/dL (8.4-10.2); Carbon Dioxide 19 mmol/L (22-30); Chloride 101 mmol/L (98-107); Glucose 118 mg/dL (74-99); Magnesium 2.2 mg/dL (1.6-2.3); Non-African American GFR(CKD) >90 (>60 ml/min/1.73 sqM); Potassium 3.9 mmol/L (3.5-5.1); Sodium 133 mmol/L (137-145); Total Bilirubin 0.7 mg/dL (0.2-1.3); Total Protein 7.2 g/dL (6.3-8.2)
[2023-06-28 16:25] VITALS: BP 131/79; PULSE 51; RESP 18; TEMP 98.4
== END 2023-06-28 16:25 | disposition home or self-care (01) ==
LOC: EC 13:55
DX: F41.9 Anxiety disorder, unspecified (principal); E78.5 Hyperlipidemia, unspecified; I10 Essential (primary) hypertension; Z79.82 Long term (current) use of aspirin; Z88.6 Allergy status to analgesic agent; Z88.8 Allergy status to other drugs, medicaments and biological substances; Z79.899 Other long term (current) drug therapy
CPT/HCPCS: 36415; 93005; 85379; 80053; 83735; 84484; 85025; 71046; 99285; 96374; J2060

== ENCOUNTER 2023-07-09 13:22 | Emergency (ER) | payer BC ==
--- NOTE | 2023-07-09 14:03 | ED ---
Animal Bite HPI - General Chief Complaint: Animal Bite Stated Complaint: Dog Bite Time Seen by Provider: 07/09/23 13:42 Source: patient, RN notes reviewed Mode of arrival: ambulatory - History of Present Illness Initial Comments: Patient is a 58-year-old male presenting the emergency room for further evaluation of injury by a dog to his left lower extremity that occurred around 10:30 this morning. He had to wait to present to the emergency room due to needing to wait for the [employer] department to come to file a report as the animal that attacked him was not his. He reports that he suddenly felt the animal on his leg he was unsure if he was bitten or not. No puncture wounds with erythemic scratches and single scratched abrasion consistent with dog scratch rather than bite. He is unsure of his tetanus status. He denies any injury to any other location. He denies any other complaints or concerns this time. - Related Data Home Medications Medication Instructions Recorded Confirmed Enalapril Maleate [Vasotec] 10 mg PO BID 03/29/15 06/28/23 Aspirin EC [Ecotrin Low Dose] 81 mg PO DAILY 07/16/19 06/28/23 LORazepam [Ativan] 1 mg PO DAILY 07/16/19 06/28/23 atenoloL [Tenormin] 25 mg PO DAILY 07/16/19 06/28/23 Pravastatin Sodium [Pravachol] 20 mg PO HS 03/08/22 06/28/23 amLODIPine [Norvasc] 2.5 mg PO DAILY 03/08/22 06/28/23 Cholecalciferol (Vitamin D3) 1,250 mcg PO Q30D 06/28/23 06/28/23 [Decara (50,000 Iu)] Previous Rx's Medication Instructions Recorded Sulfamethox-Tmp 800-160Mg [Bactrim 1 tab PO Q12HR 5 Days #10 tab 07/09/23 DS 800-160 mg] Allergies Allergy/AdvReac Type Severity Reaction Status Date / Time atenolol Allergy Rash/Hives, Verified 07/09/23 13:39 (Generic only, can tolerate brand name) enalapril maleate Allergy Rash/Hives, Verified 07/09/23 13:39 [From Vasotec] (Generic only, can tolerate brand name) enalaprilat dihydrate Allergy Rash/Hives, Verified 07/09/23 13:39 [From Vasotec] (Generic only, can tolerate brand name) Review of Systems ROS Statement: Those systems with pertinent positive or pertinent negative responses have been documented in the HPI. ROS Other: All systems not noted in ROS Statement are negative. Past Medical History Past Medical History: Hyperlipidemia, Hypertension History of Any Multi-Drug Resistant Organisms: None Reported Additional Past Surgical History / Comment(s): Ascending Aortic Aneurysm graft- 1999 Past Psychological History: Anxiety Smoking Status: Never smoker Past Alcohol Use History: Occasional Past Drug Use History: None Reported General Exam Limitations: no limitations General appearance: alert, in no apparent distress Head exam: Present: atraumatic, normocephalic, normal inspection Eye exam: Present: normal appearance, PERRL, EOMI. Absent: scleral icterus, conjunctival injection, periorbital swelling ENT exam: Present: normal exam, mucous membranes moist Neck exam: Present: normal inspection, full ROM Respiratory exam: Absent: respiratory distress, accessory muscle use Cardiovascular Exam: Present: regular rate Left Lower Leg exam: Present: abrasion (3 linear erythremia without skin puncture and additional 1 linear scratch with rupture of skin minimal depth no indication for closure.) Back exam: Present: normal inspection Neurological exam: Present: alert, oriented X3, CN II-XII intact Psychiatric exam: Present: normal affect, normal mood Skin exam: Present: abrasion (As above) Course Vital Signs 07/09/23 07/09/23 13:36 14:27 Temperature 98.2 F 98 F Pulse Rate 58 L 64 Respiratory 18 16 Rate Blood Pressure 136/75 127/86 O2 Sat by Pulse 99 99 Oximetry Medical Decision Making - Medical Decision Making Was pt. sent in by a medical professional or institution (, PA, SPRING COILER, urgent care, hospital, or retirement...) When possible be specific @ -No Did you speak to anyone other than the patient for history (EMS, parent, family, police, friend...)? What history was obtained from this source @ -No Did you review nursing and triage notes (agree or disagree)? Why? @ -I reviewed and agree with nursing and triage notes Were old charts reviewed (outside hosp., previous admission, EMS record, old EKG, old radiological studies, urgent care reports/EKG's, retirement records)? Report findings @ -No old charts were reviewed Differential Diagnosis (chest pain, altered mental status, abdominal pain women, abdominal pain men, vaginal bleeding, weakness, fever, dyspnea, syncope, headache, dizziness, GI bleed, back pain, seizure, CVA, palpatations, mental health, musculoskeletal)? @ -not applicable EKG interpreted by me (3pts min.). @ -None done X-rays interpreted by me (1pt min.). @ -None done CT interpreted by me (1pt min.). @ -None done U/S interpreted by me (1pt. min.). @ -None done What testing was considered but not performed or refused? (CT, X-rays, U/S, labs)? Why? @ -None What meds were considered but not given or refused? Why? @ -None Did you discuss the management of the patient with other professionals (professionals i.e. , PA, SPRING COILER, lab, RT, psych nurse, social security benefits interviewer, medical radiation therapist, teacher, [employer] plans staff officer, family caseworker)? Give summary @ -No Was smoking cessation discussed for >3mins.? @ -No Was critical care preformed (if so, how long)? @ -No Were there social determinants of health that impacted care today? How? (Homelessness, low income, unemployed, alcoholism, drug addiction, transportation, low edu. Level, literacy, decrease access to med. care, alf, rehab)? @ -No Was there de-escalation of care discussed even if they declined (Discuss DNR or withdrawal of care, Hospice)? DNR status @ -No What co-morbidities impacted this encounter? (DM, HTN, Smoking, COPD, CAD, Cancer, CVA, ARF, Chemo, Hep., AIDS, mental health diagnosis, sleep apnea, morbid obesity)? @ -None Was patient admitted / discharged? Hospital course, mention meds given and route, prescriptions, significant lab abnormalities, going to OR and other pertinent info. @ -58-year-old male presenting the emergency room for further evaluation of injury by a dog to his left lower extremity that occurred around 10:30 this morning. He had to wait to present to the emergency room due to needing to wait for the [employer] department to come to file a report as the a nimal that attacked him was not his. He reports that he suddenly felt the animal on his leg he was unsure if he was bitten or not. Exam consistent with scratching from animal no evidence of bite. Unsure of tetanus status will update tetanus. Patient very concerned regarding potential for infection. Discussed low probability of infection however patient is concerned regarding bicuspid aortic valve and is insistent need for antibiotic therapy. Will place on empiric Bactrim course. No indication for any diagnostic testing or laboratory studies. No indication for rabies vaccination. Encouraged to keep abrasion clean and dry. Questions and concerns answered. Return parameters to the emergency room discussed. Will discharge home in stable condition on empiric course of Bactrim to treat abrasion related to an animal scratch advising follow-up with primary care provider. Undiagnosed new problem with uncertain prognosis? @ -No Drug Therapy requiring intensive monitoring for toxicity (Heparin, Nitro, Insulin, Cardizem)? @ -No Were any procedures done? @ -No Diagnosis/symptom? @ -Animal scratch Acute, or Chronic, or Acute on Chronic? @ -Acute Uncomplicated (without systemic symptoms) or Complicated (systemic symptoms)? @ -Uncomplicated Side effects of treatment? @ -No Exacerbation, Progression, or Severe Exacerbation? @ -No Poses a threat to life or bodily function? How? (Chest pain, [place], [place], pneumonia, PE, COPD, DKA, ARF, appy, cholecystitis, CVA, Diverticulitis, Homicidal, Suicidal, threat to staff... and all critical care pts) @ -No Case discussed with Dr. Garcia. Disposition Clinical Impression: Animal scratch Disposition: HOME SELF-CARE Condition: Stable Instructions (If sedation given, give patient instructions): Abrasion (ED) Additional Instructions: Complete course of antibiotic as prescribed. Keep wound clean and dry. Please follow-up with your primary care provider. Please return to the Emergency Department if symptoms worsen or any other concerns. Prescriptions: Sulfamethox-Tmp 800-160Mg [Bactrim DS 800-160 mg] 1 tab PO Q12HR 5 Days #10 tab Is patient prescribed a controlled substance at d/c from ED?: No Referrals: None,Stated [Primary Care Provider] - 1-2 days Time of Disposition: 14:03
[2023-07-09] MEDS ORDERED: DIPH,PERTUS(ACELL)TETVAC-LF 0.5 ML VIAL IM ONE (14:14)
[2023-07-09 14:29] VITALS: BP 127/86; PULSE 64; RESP 16; TEMP 98
== END 2023-07-09 15:14 | disposition home or self-care (01) ==
LOC: EC 13:22
DX: S80.812A Abrasion, left lower leg, initial encounter (principal); E78.5 Hyperlipidemia, unspecified; I10 Essential (primary) hypertension; F41.9 Anxiety disorder, unspecified; Z79.899 Other long term (current) drug therapy; Z79.82 Long term (current) use of aspirin; Z23 Encounter for immunization; W54.0XXA Bitten by dog, initial encounter
CPT/HCPCS: 90471; 90715; 99283

== ENCOUNTER → 2023-07-12 | Outpatient (CLI) | payer BC ==
--- NOTE | 2023-07-13 14:18 | CT ---
EXAMINATION TYPE: CT angio chest DATE OF EXAM: 07/12/2023 COMPARISON: 03/24/2022 HISTORY: Bicuspid aortic valve CT DLP: 711.90 mGycm, Automated exposure control for dose reduction was used. CONTRAST: Performed injected with 100 mL of Isovue 300. TECHNIQUE: Axial images were obtained at 5 mm thick sections. Reconstructed images are reviewed on [employer] computer in the coronal plane. FINDINGS: Portion of the thyroid visualized is normal. No suspicious lung nodules or focal infiltrates are present. No enlarged mediastinal or hilar adenopathy is evident. The ascending aorta diameter at the level o f the main pulmonary artery is 4.6 cm. The main pulmonary artery diameter at the bifurcation is 3.1 cm. There is a three-vessel arch. The descending thoracic aorta tapers normally through its visualized co urse. Limited CT sections are obtained through the upper abdomen. Abdomen is essentially unremarkable. IMPRESSIONS: 1. Ascending thoracic aortic aneurysm of 4.6 cm.
== END | disposition home or self-care (01) ==
LOC: RADCTMAIN 15:53
PROVIDERS: ATTEND Internal Medicine Interventional Cardiology
DX: I71.21 Aneurysm of the ascending aorta, without rupture (principal); Q23.1 Congenital insufficiency of aortic valve
CPT/HCPCS: 71275; Q9967

== ENCOUNTER 2023-09-18 14:36 | Observation (INO) | payer BC ==
[2023-09-18 14:48] VITALS: TEMP 98.8
[2023-09-18 15:26] LABS: Basophils % (A) 0 %; Eosinophils % (A) 0 %; HCT 37.3 % (39.0-53.0); HGB 12.4 gm/dL (13.0-17.5); Lymphocytes # (A) 0.9 k/uL (1.0-4.8); Lymphocytes % (A) 17 %; MCH 27.7 pg (25.0-35.0); MCHC 33.3 g/dL (31.0-37.0); MCV 83.2 fL (80.0-100.0); Mean Platelet Volume 7.4; Monocytes # (A) 0.3 k/uL (0-1.0); Monocytes % (A) 6 %; Neutrophils # (A) 3.9 k/uL (1.3-7.7); Neutrophils % (A) 75 %; Platelet Count 280 k/uL (150-450); RBC 4.48 m/uL (4.30-5.90); WBC 5.2 k/uL (3.8-10.6)
[2023-09-18 15:34] LABS: ALT 20 U/L (4-49); AST 24 U/L (17-59); African American GFR (CKD) >90 (>60 ml/min/1.73 sqM); Albumin 4.4 g/dL (3.5-5.0); Alkaline Phosphatase 71 U/L (38-126); Anion Gap 14 mmol/L; Blood Urea Nitrogen 8 mg/dL (9-20); Calcium 9.3 mg/dL (8.4-10.2); Carbon Dioxide 16 mmol/L (22-30); Chloride 90 mmol/L (98-107); Glucose 104 mg/dL (74-99); Magnesium 1.7 mg/dL (1.6-2.3); Non-African American GFR(CKD) >90 (>60 ml/min/1.73 sqM); Potassium 4.3 mmol/L (3.5-5.1); Sodium 120 mmol/L (137-145); Total Bilirubin 0.8 mg/dL (0.2-1.3); Total Protein 6.9 g/dL (6.3-8.2)
[2023-09-18 15:35] LABS: Partial Thromboplastin Time 26.2 sec (22.0-30.0); Prothrombin Time 10.8 sec (10.0-12.5)
--- NOTE | 2023-09-18 15:37 | XR ---
EXAMINATION TYPE: XR chest 2V DATE OF EXAM: 09/18/2023 COMPARISON: 06/28/2023 TECHNIQUE: PA and lateral views submitted. HISTORY: Chest pain FINDINGS: The lungs are clear and there is no pneumothorax, pleural effusion, or focal pneumonia. Heart is enl arged and there is no overt failure. Hyperinflation suggests COPD. Mild AC joint arthropathy.. Osseou s structures demonstrate hypertrophic and degenerative changes of the spine. Post median sternotomy. IMPRESSION: 1. No acute process. Cardiomegaly correlate for COPD.
[2023-09-18] MEDS ORDERED: ASPIRIN 81 MG PO STA (15:58)
[2023-09-18] MEDS ORDERED: MORPHINE SULFATE 4 MG/ML SYRINGE IV STA ×2 (15:58→17:27)
--- NOTE | 2023-09-18 16:05 | ED ---
General Adult HPI - General Chief complaint: Chest Pain Stated complaint: chest pain Time Seen by Provider: 09/18/23 15:44 Source: patient Mode of arrival: ambulatory Limitations: no limitations - History of Present Illness Initial comments: Dictation was produced using [employer] dictation software. please excuse any grammatical, word or spelling errors. Chief Complaint: 58-year-old male presents emergency department with severe chest pain History of Present Illness: Or pleasant well-appearing male presents to the ER for chief complaint of chest pain since yesterday as past medical history of ascending aortic aneurysm that was repaired at [facility] and year 1999 with a aortic stent graft. Patient states that he has been having some severe 9 out of 10 chest pain substernally. Nonradiating. No associated diaphoresis or nausea. Patient denies any history of coronary artery disease previous history of dyslipidemia and hypertension. The ROS documented in this emergency department record has been reviewed and con firmed by me. Those systems with pertinent positive or negative responses have been documented in the HPI. All other systems are other negative and/or noncontributory. - Related Data Home Medications Medication Instructions Recorded Confirmed Enalapril Maleate [Vasotec] 10 mg PO BID 03/29/15 06/28/23 Aspirin EC [Ecotrin Low Dose] 81 mg PO DAILY 07/16/19 06/28/23 LORazepam [Ativan] 1 mg PO DAILY 07/16/19 06/28/23 atenoloL [Tenormin] 25 mg PO DAILY 07/16/19 06/28/23 Pravastatin Sodium [Pravachol] 20 mg PO HS 03/08/22 06/28/23 amLODIPine [Norvasc] 2.5 mg PO DAILY 03/08/22 06/28/23 Cholecalciferol (Vitamin D3) 1,250 mcg PO Q30D 06/28/23 06/28/23 [Decara (50,000 Iu)] Previous Rx's Medication Instructions Recorded Sulfamethox-Tmp 800-160Mg [Bactrim 1 tab PO Q12HR 5 Days #10 tab 07/09/23 DS 800-160 mg] Allergies Allergy/AdvReac Type Severity Reaction Status Date / Time atenolol Allergy Rash/Hives, Verified 09/18/23 14:47 (Generic only, can tolerate brand name) enalapril maleate Allergy Rash/Hives, Verified 09/18/23 14:47 [From Vasotec] (Generic only, can tolerate brand name) enalaprilat dihydrate Allergy Rash/Hives, Verified 09/18/23 14:47 [From Vasotec] (Generic only, can tolerate brand name) Review of Systems ROS Statement: Those systems with pertinent positive or pertinent negative responses have been documented in the HPI. ROS Other: All systems not noted in ROS Statement are negative. Past Medical History Past Medical History: Hyperlipidemia, Hypertension Additional Past Medical History / Comment(s): leaking cuspid heart valve History of Any Multi-Drug Resistant Organisms: None Reported Additional Past Surgical History / Comment(s): Ascending Aortic Aneurysm graft-1999 Past Psychological History: Anxiety Smoking Status: Never smoker Past Alcohol Use History: Occasional Past Drug Use History: None Reported General Exam - General Exam Comments Initial Comments: PHYSICAL EXAM: General Impression: Alert and oriented x3, not in acute distress HEENT: Normocephalic atraumatic, extra-ocular movements intact, pupils equal and reactive to light bilaterally, mucous membranes moist. Cardiovascular: Heart regular rate and rhythm Chest: Able to complete full sentences, no retractions, no tachypnea Abdomen: abdomen soft, non-tender, non-distended, no organomegaly Musculoskeletal: Pulses present and equal in all extremities, no peripheral edema Motor: no focal deficits noted Neurological: CN II-XII grossly intact, no focal motor or sensory deficits noted Skin: Intact with no visualized rashes Psych: Normal affect and mood Limitations: no limitations Course Vital Signs 09/18/23 09/18/23 14:44 15:57 Temperature 98.8 F Pulse Rate 82 73 Respiratory 16 18 Rate Blood Pressure 168/81 150/79 O2 Sat by Pulse 99 97 Oximetry EKG Findings - EKG Comments: EKG Findings:: My EKG interpretation: Ventricular rate 84, A. fib, QRS 102, QTc 4:30.no QTC prolongation, suspicious mild ST depressions in lead [address] elevations. Multiple PVCs. 2 other serious EKGs were performed with no dynamic changes.. Overall, this EKG is nonspecific Medical Decision Making - Medical Decision Making Was pt. sent in by a medical professional or institution (, PA, TERRITORY SALES PROFESSIONAL, urgent care, hospital, or skilled nursing...) When possible be specific @ -No Did you speak to anyone other than the patient for history (EMS, parent, family, police, friend...)? What history was obtained from this source @ -No Did you review nursing and triage notes (agree or disagree)? Why? @ -I reviewed and agree with nursing and triage notes Were old charts reviewed (outside hosp., previous admission, EMS record, old EKG, old radiological studies, urgent care reports/EKG's, skilled nursing records)? Report findings @ -No old charts were reviewed Differential Diagnosis (chest pain, altered mental status, abdominal pain women, abdominal pain men, vaginal bleeding, musculoskeletal, weakness, fever, dyspnea, syncope, headache, dizziness, GI bleed, back pain, seizure, CVA, palpatations, mental health)? @ -Differential Chest Pain: Stable Angina, Unstable Angina, STEMI, NSTEMI Aortic Dissection, Pneumothorax, Musculoskeletal, Esophageal Spasm GERD, Cholecystitis, Pancreatitis, Zoster, this is not meant to be an all-inclusive list. EKG interpreted by me (3pts min.). @ -see above X-rays interpreted by me (1pt min.). @ -Chest x-ray is nonacute CT interpreted by me (1pt min.). @ -CT angiography shows stable aneurysm. No dissection or aneurysmal leakage. U/S interpreted by me (1pt. min.). @ -None done What testing was considered but not performed or refused? (CT, X-rays, U/S, labs)? Why? @ -None What meds were considered but not given or refused? Why? @ -None Did you discuss the management of the patient with other professionals (professionals i.e. , PA, TERRITORY SALES PROFESSIONAL, lab, RT, psych nurse, professor of social work, electromechanical engineer, teacher, juvenile justice officer, community case manager)? Give summary @ -Case discussed with hospitalist for admission Was smoking cessation discussed for >3mins.? @ -No Was critical care preformed (if so, how long)? @ -No Were there social determinants of health that impacted care today? How? (Homelessness, low income, unemployed, alcoholism, drug addiction, transportation, low edu. Level, literacy, decrease access to med. care, fpc, rehab)? @ -No Was there de-escalation of care discussed even if they declined (Discuss DNR or withdrawal of care, Hospice)? DNR status @ -No What co-morbidities impacted this encounter? (DM, HTN, Smoking, COPD, CAD, Canc er, CVA, ARF, Chemo, Hep., AIDS, mental health diagnosis, sleep apnea, morbid obesity)? @ -None Was patient admitted / discharged? Hospital course, mention meds given and route, prescriptions, significant lab abnormalities, going to OR and other pertinent info. @ -58-year-old male with chief complaint of atypical chest pain typical features. Vital signs are stable. Laboratory evaluation obtained. Imaging studies are negative. Patient states that his symptoms are severe however he is well-appearing in no acute distress. States that he may be withdrawing from benzodiazepines as he is trying to wean himself independently and nonetheless patient will be admitted to observation for chest pain with cardiac monitoring and cardiology consultation. Undiagnosed new problem with uncertain prognosis? @ -No Drug Therapy requiring intensive monitoring for toxicity (Heparin, Nitro, I nsulin, Cardizem)? @ -No Were any procedures done? @ -No Diagnosis/symptom? Acute, or Chronic, or Acute on Chronic? Uncomplicated (without systemic symptoms) or Complicated (systemic symptoms)? @ -chest pain Side effects of treatment? @ -No Exacerbation, Progression, or Severe Exacerbation? @ -No Poses a threat to life or bodily function? How? (Chest pain, [place], [place], pneumonia, PE, COPD, DKA, ARF, appy, cholecystitis, CVA, Diverticulitis, Homicidal, Suicidal, threat to staff... and all critical care pts) @ -yes - Lab Data Result diagrams: 09/18/23 14:50 09/18/23 14:50 Lab Results 09/18/23 09/18/23 09/18/23 Range/Units 14:50 14:50 14:50 WBC 5.2 (3.8-10.6) k/uL RBC 4.48 (4.30-5.90) m/uL Hgb 12.4 L (13.0-17.5) gm/dL Hct 37.3 L (39.0-53.0) % MCV 83.2 (80.0-100.0) fL MCH 27.7 (25.0-35.0) pg MCHC 33.3 (31.0-37.0) g/dL RDW 16.0 H (11.5-15.5) % Plt Count 280 (150-450) k/uL MPV 7.4 Neutrophils % 75 % Lymphocytes % 17 % Monocytes % 6 % Eosinophils % 0 % Basophils % 0 % Neutrophils # 3.9 (1.3-7.7) k/uL Lymphocytes # 0.9 L (1.0-4.8) k/uL Monocytes # 0.3 (0-1.0) k/uL Eosinophils # 0.0 (0-0.7) k/uL Basophils # 0.0 (0-0.2) k/uL PT 10.8 (10.0-12.5) sec INR 1.0 (<1.2) APTT 26.2 (22.0-30.0) sec Sodium 120 L (137-145) mmol/L Potassium 4.3 (3.5-5.1) mmol/L Chloride 90 L (98-107) mmol/L Carbon Dioxide 16 L (22-30) mmol/L Anion Gap 14 mmol/L BUN 8 L (9-20) mg/dL Creatinine 0.68 (0.66-1.25) mg/dL Est GFR (CKD-EPI)AfAm >90 (>60 ml/min/1.73 sqM) Est GFR (CKD-EPI)NonAf >90 (>60 ml/min/1.73 sqM) Glucose 104 H (74-99) mg/dL Calcium 9.3 (8.4-10.2) mg/dL Magnesium 1.7 (1.6-2.3) mg/dL Total Bilirubin 0.8 (0.2-1.3) mg/dL AST 24 (17-59) U/L ALT 20 (4-49) U/L Alkaline Phosphatase 71 (38-126) U/L Troponin I (0.000-0.034) ng/mL Total Protein 6.9 (6.3-8.2) g/dL Albumin 4.4 (3.5-5.0) g/dL 09/18/23 Range/Units 14:50 WBC (3.8-10.6) k/uL RBC (4.30-5.90) m/uL Hgb (13.0-17.5) gm/dL Hct (39.0-53.0) % MCV (80.0-100.0) fL MCH (25.0-35.0) pg MCHC (31.0-37.0) g/dL RDW (11.5-15.5) % Plt Count (150-450) k/uL MPV Neutrophils % % Lymphocytes % % Monocytes % % Eosinophils % % Basophils % % Neutrophils # (1.3-7.7) k/uL Lymphocytes # (1.0-4.8) k/uL Monocytes # (0-1.0) k/uL Eosinophils # (0-0.7) k/uL Basophils # (0-0.2) k/uL PT (10.0-12.5) sec INR (<1.2) APTT (22.0-30.0) sec Sodium (137-145) mmol/L Potassium (3.5-5.1) mmol/L Chloride (98-107) mmol/L Carbon Dioxide (22-30) mmol/L Anion Gap mmol/L BUN (9-20) mg/dL Creatinine (0.66-1.25) mg/dL Est GFR (CKD-EPI)AfAm (>60 ml/min/1.73 sqM) Est GFR (CKD-EPI)NonAf (>60 ml/min/1.73 sqM) Glucose (74-99) mg/dL Calcium (8.4-10.2) mg/dL Magnesium (1.6-2.3) mg/dL Total Bilirubin (0.2-1.3) mg/dL AST (17-59) U/L ALT (4-49) U/L Alkaline Phosphatase (38-126) U/L Troponin I <0.012 (0.000-0.034) ng/mL Total Protein (6.3-8.2) g/dL Albumin (3.5-5.0) g/dL Disposition Clinical Impression: Chest pain Disposition: ADMITTED IP TO THIS HOSP Condition: Fair Referrals: Morteza Briones DO [Primary Care Provider] - 1-2 days Decision Time: 17:32
--- NOTE | 2023-09-18 16:59 | CT ---
EXAMINATION TYPE: CT angio thor/abd CT DLP: 933 mGycm, Automated exposure control for dose reduction was used. DATE OF EXAM: 09/18/2023 4:35 PM COMPARISON: 07/12/2023, 03/18/2019. CLINICAL INDICATION:Male, 58 years old with history of severe chest pain history of type A aneurysm TECHNIQUE: Dissection protocol: Multiple axial CT images of the chest, abdomen, were obtained prior a nd to the administration of IV contrast. 3-D reformats and maximum intensity projection format were p erformed on a separate workstation. Contrast used: 100 cc Isovue-300. Oral contrast used: None FINDINGS: ARTERIAL VASCULATURE: No evidence for intramural hematoma. There is postsurgical changes of the aorti c arch. High density surgical change noted in the descending aorta. Post contrast imaging of the aort a demonstrates patent vasculature. No evidence for occlusion of the aortic arch major vessels. Ascend ing thoracic aorta ectasia up to 4.4 cm is similar to prior. PULMONARY ARTERIAL VASCULATURE: Normal caliber. No evidence of filling defect to suggest pulmonary em bolus. VENOUS SYSTEM: Unremarkable. Lungs/pleura: The lung parenchyma appears unremarkable. Heart: The heart is enlarged for size. Aortic valve leaflet calcifications are present. Mediastinum: No gross evidence of adenopathy. Lower Neck: No significant findings. Abdomen: Liver: Unremarkable. Gallbladder and Bile ducts: Unremarkable. Pancreas: Unremarkable. Spleen: Unremarkable. Adrenal glands: Unremarkable. Kidneys and Ureters: Unremarkable. No hydronephrosis. Stomach and Bowel: Unremarkable. No evidence of bowel obstruction. Peritoneum: No evidence of pneumoperitoneum, free fluid, or adenopathy. Musculoskeletal: The osseous structures appear intact. Lymph nodes: No evidence of lymphadenopathy. Abdominal wall/soft tissues: Unremarkable. IMPRESSION: 1. Similar ascending thoracic aorta ectasia up to 4.4 cm. No evidence for thoracic aortic dissection. No evidence for aneurysmal dilation or central pulmonary embolus 2. Cardiomegaly with coronary artery atherosclerosis.
[2023-09-18] MEDS ORDERED: LORazepam 2 MG/ML INJ IV STA (17:27)
[2023-09-18] MEDS ORDERED: NITROGLYCERIN SL TABS 0.4 MG TAB SUBLINGUAL PRN (17:28)
[2023-09-18] MEDS ORDERED: Magnesium Replacement Protocol 1 EACH MISC MISCELLANE PRN (20:22)
[2023-09-18] MEDS ORDERED: MAGNESIUM SULFATE-D5W PMX 1 GM in DEXTROSE/WATER 1 100ML.BAG IVPB ONE (20:22)
[2023-09-18] MEDS ORDERED: PRAVASTATIN SODIUM 20 MG TAB PO SCH (21:00)
[2023-09-18 23:47] VITALS: BP 148/82; PULSE 80; RESP 18
[2023-09-19] MEDS ORDERED: APIXABAN 5 MG TAB PO SCH (04:30)
[2023-09-19] MEDS ORDERED: ASPIRIN 81 MG PO SCH (04:30)
[2023-09-19] MEDS ORDERED: LORazepam 0.5 MG TAB PO SCH (06:00)
[2023-09-19] MEDS ORDERED: ASPIRIN 325 MG TAB PO SCH (09:00)
[2023-09-19] MEDS ORDERED: atenoloL 25 MG TAB PO SCH (09:00)
[2023-09-19] MEDS ORDERED: lisinopriL 20 MG TAB PO SCH (09:00)
--- NOTE | 2023-09-19 09:42 | P.HPIM ---
History of Present Illness H&P Date: 09/19/23 This is a combination H&P as well as discharge summary as the patient was admitted and evaluated by the ER physicians and brought to the floor and made nursing staff aware that he was leaving to go home as he had to be to work in the am. This is a 58-year-old male who presented to the ER with chief complaint of chest pain that have been ongoing for 1 day. Patient with a past medical history of ascending aortic aneurysm that was repaired at [facility] back in the year 1999 with stenting and underwent CTA in the ER which showed a similar ascending thoracic aorta ectasia up to 4.4 cm with no evidence of thoracic aortic dissection and no evidence of aneurysmal dilatation or central pulmonary embolus. There was some noted cardiomegaly with coronary artery atherosclerosis. Patient had serial troponins which were negative 3 and initial sodium level was 120 and magnesium of 1.7. Upon arrival to the floor patient received one bag of magnesium and made the nursing staff aware he would be leaving as he had to get to work on time tomorrow morning. Stat repeat sodium level was drawn as there was concern for possible error in lab draw and repeat sodium was 130. was at the bedside and patient's mentation was alert and oriented 3. Risks versus benefits were explained and patient continued to wish to proceed with leaving AGAINST MEDICAL ADVICE. Paperwork was signed. Patient was not evaluated by admitting and attending physician this admission. Please refer to ER documentation for further HPI. The impression and plan of care has been dictated by Debi Rider, Nurse Practitioner as directed. Dr. Erna MD I have performed a history and examination and MDM of this patient, discussed the same with the dictator, and agree with the dictator's assessment and plan as written ,documented as a scribe. Based on total visit time, I have performed more than 50% of the visit. Past Medical History Past Medical History: Hyperlipidemia, Hypertension Additional Past Medical History / Comment(s): leaking cuspid heart valve History of Any Multi-Drug Resistant Organisms: None Reported Additional Past Surgical History / Comment(s): Ascending Aortic Aneurysm graft- 1999 Past Psychological History: Anxiety Smoking Status: Never smoker Past Alcohol Use History: Occasional Past Drug Use History: None Reported Medications and Allergies Home Medications Medication Instructions Recorded Confirmed Type Enalapril Maleate [Vasotec] 10 mg PO BID@0430,1200 03/29/15 09/18/23 History Aspirin EC [Ecotrin Low Dose] 81 mg PO DAILY@0430 07/16/19 09/18/23 History LORazepam [Ativan] 0.5 mg PO DAILY@0600 07/16/19 09/18/23 History atenoloL [Tenormin] 25 mg PO DAILY 07/16/19 09/18/23 History Pravastatin Sodium [Pravachol] 20 mg PO HS 03/08/22 09/18/23 History Cholecalciferol (Vitamin D3) 1,250 mcg PO QMONTHLY 06/28/23 09/18/23 History [Decara (50,000 Iu)] Apixaban [Eliquis] 5 mg PO BID@0430,1630 09/18/23 09/18/23 History amLODIPine [Norvasc] 10 mg PO DAILY@1300 09/18/23 09/18/23 History hydrALAZINE HCL [Apresoline] 25 mg PO DAILY@1630 09/18/23 09/18/23 History Allergies Allergy/AdvReac Type Severity Reaction Status Date / Time atenolol Allergy Rash/Hives, Verified 09/18/23 18:11 (Generic only, can tolerate brand name) enalapril maleate Allergy Rash/Hives, Verified 09/18/23 18:11 [From Vasotec] (Generic only, can tolerate brand name) enalaprilat dihydrate Allergy Rash/Hives, Verified 09/18/23 18:11 [From Vasotec] (Generic only, can tolerate brand name) nifedipine AdvReac Abdominal Verified 09/18/23 18:11 Pain Physical Exam Vitals: Vital Signs Temp Pulse Resp BP Pulse Ox 09/18/23 23:00 80 18 148/82 09/18/23 22:00 55 L 20 133/74 09/18/23 21:00 66 18 146/82 09/18/23 20:00 65 19 146/82 97 09/18/23 19:19 69 16 146/82 97 09/18/23 19:00 66 19 162/95 96 09/18/23 18:00 64 12 171/86 98 09/18/23 17:00 70 12 171/86 99 09/18/23 15:59 76 6 L 99 09/18/23 15:57 73 18 150/79 97 09/18/23 14:44 98.8 F 82 16 168/81 99 Results CBC & Chem 7: 09/18/23 14:50 09/18/23 23:21 Labs: Abnormal Lab Results - Last 24 Hours (Table) 09/18/23 09/18/23 09/18/23 Range/Units 14:50 14:50 23:21 Hgb 12.4 L (13.0-17.5) gm/dL Hct 37.3 L (39.0-53.0) % RDW 16.0 H (11.5-15.5) % Lymphocytes # 0.9 L (1.0-4.8) k/uL Sodium 120 L 130 L (137-145) mmol/L Chloride 90 L (98-107) mmol/L Carbon Dioxide 16 L (22-30) mmol/L BUN 8 L (9-20) mg/dL Glucose 104 H (74-99) mg/dL
--- NOTE | 2023-09-19 09:47 | P.DS ---
Providers Date of admission: 09/18/23 17:29 Expected date of discharge: 09/18/23 Attending physician: Kelly Zazueta Consults: 09/18/23 17:28 Consult Physician Urgent Consulting Provider: Tita Gibbons Consult Reason/Comments: chest pain Do you want consulting provider notified?: Yes Primary care physician: Morteza Briones DO Hospital Course: Patient left AGAINST MEDICAL ADVICE prior to being seen by admitting physician Discharge disposition Patient is choosing to leave AGAINST MEDICAL ADVICE. Risks versus benefits were explained and patient is alert and oriented 3 with at bedside. Paperwork was signed prior to discharge. Patient had been instructed to follow-up with primary care provider as well as cardiology and [facility] on follow-up eval regarding his aneurysm. Patient was also instructed to return to the local ER or call 911 if experiencing any further symptoms. Total time taken is greater than 35 minutes. Hospital course This is a 58-year-old male who was recently admitted from the ER for chest pain for cardiology evaluation. 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 Noted sodium was 120 and repeat sodium was drawn being 1. Serial troponins were negative 3. Again risks versus benefits were explained and patient continued to wish to proceed with completing. Patient was not evaluated by admitting and attending physician on this admission. Please refer to ER documentation for further HPI. The impression and plan of care has been dictated by Debi Rider, Nurse Practitioner as directed. Dr. Erna MD I have performed a history and examination and MDM of this patient, discussed the same with the dictator, and agree with the dictator's assessment and plan as written ,documented as a scribe. Based on total visit time, I have performed more than 50% of the visit. Patient Condition at Discharge: Undetermined Plan - Discharge Summary New Discharge Prescriptions: No Action Enalapril Maleate [Vasotec] 10 mg PO BID@0430,1200 Aspirin EC [Ecotrin Low Dose] 81 mg PO DAILY@0430 atenoloL [Tenormin] 25 mg PO DAILY LORazepam [Ativan] 0.5 mg PO DAILY@0600 Cholecalciferol (Vitamin D3) [Decara (50,000 Iu)] 1,250 mcg PO QMONTHLY hydrALAZINE HCL [Apresoline] 25 mg PO DAILY@1630 Pravastatin Sodium [Pravachol] 20 mg PO HS Apixaban [Eliquis] 5 mg PO BID@0430,1630 amLODIPine [Norvasc] 10 mg PO DAILY@1300 Discharge Medication List Enalapril Maleate [Vasotec] 10 mg PO BID@0430,1200 03/29/15 [History] Aspirin EC [Ecotrin Low Dose] 81 mg PO DAILY@0430 07/16/19 [History] LORazepam [Ativan] 0.5 mg PO DAILY@0600 07/16/19 [History] atenoloL [Tenormin] 25 mg PO DAILY 07/16/19 [History] Pravastatin Sodium [Pravachol] 20 mg PO HS 03/08/22 [History] Cholecalciferol (Vitamin D3) [Decara (50,000 Iu)] 1,250 mcg PO QMONTHLY 06/28/23 [History] Apixaban [Eliquis] 5 mg PO BID@0430,1630 09/18/23 [History] amLODIPine [Norvasc] 10 mg PO DAILY@1300 09/18/23 [History] hydrALAZINE HCL [Apresoline] 25 mg PO DAILY@1630 09/18/23 [History] Follow up Appointment(s)/Referral(s): Morteza Briones DO [Primary Care Provider] - 1-2 days Discharge Disposition: HOME SELF-CARE
[2023-09-19] MEDS ORDERED: hydrALAZINE HCL 25 MG TAB PO SCH (16:30)
[2023-10-02] MEDS ORDERED: CHOLECALCIFEROL 125 MCG (5000 IU) TABLET PO SCH (09:00)
== END 2023-09-18 23:40 | disposition left against medical advice (07) ==
LOC: SUPCPDRO 14:36 → EC 14:36 → 6NMEDSUR 17:29
PROVIDERS: ADMIT Hospitalist; ATTEND Hospitalist
DX: R07.89 Other chest pain (principal); I25.10 Atherosclerotic heart disease of native coronary artery without angina pectoris; I11.9 Hypertensive heart disease without heart failure; E78.5 Hyperlipidemia, unspecified; F41.9 Anxiety disorder, unspecified; Z79.01 Long term (current) use of anticoagulants; Z79.82 Long term (current) use of aspirin; Z79.899 Other long term (current) drug therapy; Z88.8 Allergy status to other drugs, medicaments and biological substances; Z86.79 Personal history of other diseases of the circulatory system; Z95.828 Presence of other vascular implants and grafts
CPT/HCPCS: 96376; 96365; 96375; 99285; 36415; 93005; 80053; 83735; 84295; 84484; 85025; 85610; 85730; 71046; 71275; 74175; G0378; J2060; J2270; J3475; Q9967

== ENCOUNTER 2023-11-06 16:53 | Observation (INO) | payer BC ==
--- NOTE | 2023-11-06 18:30 | ED ---
Chest Pain HPI - General Source: patient Mode of arrival: ambulatory Limitations: no limitations <Manfred Art - Last Filed: 11/06/23 18:30> - General Source: patient, RN notes reviewed Mode of arrival: ambulatory Limitations: no limitations <Karsten Tamez - Last Filed: 11/06/23 20:54> - General Chief Complaint: Chest Pain Stated Complaint: heart pain right side numbness Time Seen by Provider: 11/06/23 18:30 - History of Present Illness Initial Comments: Male presenting to the ED with a chief complaint of chest pain. Patient states for the past week has had left side of his chest described as sharp. Also notes some right arm pain with this as well. Notes history of AAA and with heart history presenting to the ED for further evaluation. Patient notes over the past week he has been under a lot of stress. (Manfred Art) 58-year-old male presents emergency Department chief complaint of left-sided chest pain. Patient states it sharp, burning pain he states does have some achiness into his right arm. Patient has significant cardiac history including aortic valve issue, ascending aortic aneurysm repair, hypertension hyperlipidemia. Patient states she's had increasing stress last week he states that this pain is concerning. Patient denies any upper back pain, low back pain. No abdominal pain (Karsten Tamez) - Related Data Home Medications Medication Instructions Recorded Confirmed Enalapril Maleate [Vasotec] 10 mg PO BID@0430,1200 03/29/15 09/18/23 Aspirin EC [Ecotrin Low Dose] 81 mg PO DAILY@0430 07/16/19 09/18/23 LORazepam [Ativan] 0.5 mg PO DAILY@0600 07/16/19 09/18/23 atenoloL [Tenormin] 25 mg PO DAILY 07/16/19 09/18/23 Pravastatin Sodium [Pravachol] 20 mg PO HS 03/08/22 09/18/23 Cholecalciferol (Vitamin D3) 1,250 mcg PO QMONTHLY 06/28/23 09/18/23 [Decara (50,000 Iu)] Apixaban [Eliquis] 5 mg PO BID@0430,1630 09/18/23 09/18/23 amLODIPine [Norvasc] 10 mg PO DAILY@1300 09/18/23 09/18/23 hydrALAZINE HCL [Apresoline] 25 mg PO DAILY@1630 09/18/23 09/18/23 Allergies Allergy/AdvReac Type Severity Reaction Status Date / Time atenolol Allergy Rash/Hives, Verified 09/18/23 18:11 (Generic only, can tolerate brand name) enalapril maleate Allergy Rash/Hives, Verified 09/18/23 18:11 [From Vasotec] (Generic only, can tolerate brand name) enalaprilat dihydrate Allergy Rash/Hives, Verified 09/18/23 18:11 [From Vasotec] (Generic only, can tolerate brand name) nifedipine AdvReac Abdominal Verified 09/18/23 18:11 Pain Review of Systems ROS Other: All systems not noted in ROS Statement are negative. <Manfred Art - Last Filed: 11/06/23 18:30> ROS Other: All systems not noted in ROS Statement are negative. <Karsten Tamez - Last Filed: 11/06/23 20:54> ROS Statement: Those systems with pertinent positive or pertinent negative responses have been documented in the HPI. EKG Findings - EKG Comments: EKG Findings:: EKG performed at 9:30 A. fib with a rate of 56 QRS 95 QT/QTC 4:15/406 - EKG Results: EKG: interpreted by ERMD <Karsten Tamez - Last Filed: 11/06/23 20:54> Past Medical History Past Medical History: Atrial Fibrillation, Hyperlipidemia, Hypertension Additional Past Medical History / Comment(s): leaking cuspid heart valve, AAA History of Any Multi-Drug Resistant Organisms: None Reported Additional Past Surgical History / Comment(s): Ascending Aortic Aneurysm graft- 1999 Past Psychological History: Anxiety Smoking Status: Never smoker Past Alcohol Use History: Occasional Past Drug Use History: None Reported <Manfred Art - Last Filed: 11/06/23 18:30> General Exam Limitations: no limitations <Manfred Art - Last Filed: 11/06/23 18:30> General appearance: alert, in no apparent distress Head exam: Present: atraumatic, normocephalic, normal inspection Eye exam: Present: normal appearance, PERRL, EOMI. Absent: scleral icterus, conjunctival injection, periorbital swelling ENT exam: Present: normal exam, mucous membranes moist Neck exam: Present: normal inspection. Absent: tenderness, meningismus, lymphadenopathy Respiratory exam: Present: normal lung sounds bilaterally. Absent: respiratory distress, wheezes, rales, rhonchi, stridor Cardiovascular Exam: Present: bradycardia, irregular rhythm, normal heart sounds. Absent: regular rate, systolic murmur, diastolic murmur, rubs, gallop, clicks GI/Abdominal exam: Present: soft, normal bowel sounds. Absent: distended, tenderness, guarding, rebound, rigid Neurological exam: Present: alert, oriented X3, CN II-XII intact Skin exam: Present: warm, dry, intact, normal color. Absent: rash <Karsten Tamez - Last Filed: 11/06/23 20:54> - General Exam Comments Initial Comments: Visual Physical Exam Vital signs reviewed General: Well-appearing, nontoxic, no acute distress. Head: Normocephalic, atraumatic Eyes: PERRLA, EOMI ENT: Airway patent Chest: Nonlabored breathing Skin: No visual rash, normal skin tone Neuro: Alert and oriented 3 Musculoskeletal: No gross abnormalities (Manfred Art) Course Vital Signs 11/06/23 11/06/23 11/06/23 17:28 19:34 19:40 Temperature 97.3 F L Pulse Rate 72 69 55 L Respiratory 18 18 16 Rate Blood Pressure 124/74 134/85 137/73 O2 Sat by Pulse 98 97 96 Oximetry Chest Pain MDM <Manfred Art - Last Filed: 11/06/23 18:30> <Karsten Tamez - Last Filed: 11/06/23 20:54> - MDM Quicknote portion performed. Signed Manfred Art PA-C (Manfred Art) Was pt. sent in by a medical professional or institution (ALETHA Moreno, CLINICAL TECH, urgent care, hospital, or group home...) When possible be specific @ -No Did you speak to anyone other than the patient for history (EMS, parent, family, police, friend...)? What history was obtained from this source @ -No Did you review nursing and triage notes (agree or disagree)? Why? @ -I reviewed and agree with nursing and triage notes Were old charts reviewed (outside hosp., previous admission, EMS record, old EKG, old radiological studies, urgent care reports/EKG's, group home records)? Report findings @ -No old charts were reviewed Differential Diagnosis (chest pain, altered mental status, abdominal pain women, abdominal pain men, vaginal bleeding, weakness, fever, dyspnea, syncope, headache, dizziness, GI bleed, back pain, seizure, CVA, palpatations, mental health, musculoskeletal)? @ -Differential Chest Pain: Stable Angina, Unstable Angina, STEMI, NSTEMI Aortic Dissection, Pneumothorax, Musculoskeletal, Esophageal Spasm GERD, Cholecystitis, Pancreatitis, Zoster, this is not meant to be an all-inclusive list. le EKG interpreted by me (3pts min.). @ -As above X-rays interpreted by me (1pt min.). @ -Chest x-ray shows current medically CT interpreted by me (1pt min.). @ -None done U/S interpreted by me (1pt. min.). @ -None done What testing was considered but not performed or refused? (CT, X-rays, U/S, labs)? Why? @ -None What meds were considered but not given or refused? Why? @ -None Did you discuss the management of the patient with other professionals (professionals i.e. , PA, CLINICAL TECH, lab, RT, psych nurse, social media developer, sheep and wheat farmer, teacher, aeronautical engineering officer, dependency case manager)? Give summary @ -Dr. Crespo for admission for cardiac rule out Was smoking cessation discussed for >3mins.? @ -No Was critical care preformed (if so, how long)? @ -No Were there social determinants of health that impacted care today? How? (Homelessness, low income, unemployed, alcoholism, drug addiction, transportation, low edu. Level, literacy, decrease access to med. care, fpc, rehab)? @ -No Was there de-escalation of care discussed even if they declined (Discuss DNR or withdrawal of care, Hospice)? DNR status @ -No What co-morbidities impacted this encounter? (DM, HTN, Smoking, COPD, CAD, Cancer, CVA, ARF, Chemo, Hep., AIDS, mental health diagnosis, sleep apnea, morbid obesity)? @ -A. fib, hypertension hyperlipidemia and aortic aneurysm Was patient admitted / discharged? Hospital course, mention meds given and route, prescriptions, significant lab abnormalities, going to OR and other pertinent info. @ -[Admitted patiently admitted for cardiac rule out initial troponin negative, after studies are unremarkable. Patient is stable, was reviewed Undiagnosed new problem with uncertain prognosis? @ -No Drug Therapy requiring intensive monitoring for toxicity (Heparin, Nitro, Insulin, Cardizem)? @ -No Were any procedures done? @ -No Diagnosis/symptom? @ -Chest pain Acute, or Chronic, or Acute on Chronic? @ -Acute Uncomplicated (without systemic symptoms) or Complicated (systemic symptoms)? @ -complicated Side effects of treatment? @ -No Exacerbation, Progression, or Severe Exacerbation? @ -No Poses a threat to life or bodily function? How? (Chest pain, [place], [place], pneumonia, PE, COPD, DKA, ARF, appy, cholecystitis, CVA, Diverticulitis, Homicidal, Suicidal, threat to staff... and all critical care pts) @ -[yes possible ACS (Karsten Tamez) Disposition <Manfred Art - Last Filed: 11/06/23 18:30> Time of Disposition: 20:32 <Karsten Tamez - Last Filed: 11/06/23 20:54> Clinical Impression: Chest pain Disposition: ADMITTED IP TO THIS HOSP Referrals: Morteza Briones DO [Primary Care Provider] - 1-2 days
--- NOTE | 2023-11-06 18:46 | XR ---
EXAMINATION TYPE: XR chest 2V DATE OF EXAM: 11/06/2023 COMPARISON: 09/18/2023 INDICATION: Chest pain TECHNIQUE: Frontal and lateral views of the chest are obtained. FINDINGS: The heart size is enlarged. The pulmonary vasculature is normal. The lungs are clear. Sternotomy wires are in the midline IMPRESSION: 1. Cardiomegaly
[2023-11-06 19:53] VITALS: RESP 16
[2023-11-06 19:54] LABS: Anisocytosis Slight; Basophils # (A) 0.1 k/uL (0-0.2); Basophils % (A) 1 %; Eosinophils # (A) 0.1 k/uL (0-0.7); Eosinophils % (A) 2 %; HCT 40.2 % (39.0-53.0); HGB 13.1 gm/dL (13.0-17.5); Hypochromasia Slight; Lymphocytes # (A) 1.5 k/uL (1.0-4.8); Lymphocytes % (A) 28 %; MCH 27.6 pg (25.0-35.0); MCHC 32.5 g/dL (31.0-37.0); MCV 85.1 fL (80.0-100.0); Mean Platelet Volume 7.1; Monocytes # (A) 0.5 k/uL (0-1.0); Monocytes % (A) 9 %; Neutrophils # (A) 3.1 k/uL (1.3-7.7); Neutrophils % (A) 59 %; Platelet Count 303 k/uL (150-450); RBC 4.73 m/uL (4.30-5.90); RDW 16.4 % (11.5-15.5); WBC 5.2 k/uL (3.8-10.6)
[2023-11-06 20:03] LABS: Partial Thromboplastin Time 23.4 sec (22.0-30.0); Prothrombin Time 10.5 sec (10.0-12.5)
[2023-11-06 20:08] LABS: ALT 23 U/L (4-49); AST 23 U/L (17-59); African American GFR (CKD) >90 (>60 ml/min/1.73 sqM); Albumin 4.2 g/dL (3.5-5.0); Alkaline Phosphatase 70 U/L (38-126); Anion Gap 9 mmol/L; Blood Urea Nitrogen 13 mg/dL (9-20); Calcium 9.4 mg/dL (8.4-10.2); Carbon Dioxide 22 mmol/L (22-30); Chloride 102 mmol/L (98-107); Glucose 93 mg/dL (74-99); Magnesium 2.3 mg/dL (1.6-2.3); Non-African American GFR(CKD) >90 (>60 ml/min/1.73 sqM); Potassium 4.6 mmol/L (3.5-5.1); Sodium 133 mmol/L (137-145); Total Bilirubin 0.5 mg/dL (0.2-1.3); Total Protein 6.9 g/dL (6.3-8.2)
[2023-11-06] MEDS ORDERED: NITROGLYCERIN SL TABS 0.4 MG TAB SUBLINGUAL PRN (20:51)
--- NOTE | 2023-11-06 23:09 | P.HPIM ---
History of Present Illness H&P Date: 11/06/23 Patient is a 58-year-old male with a PMH of bicuspid aortic valve, A. fib not on anticoagulation (patient reports due to haemorrhoids), AAA, HTN, and HLD who presents to the ED with complaints of chest pain. The patient states he was in his usual state of health until this evening when he suddenly developed left sided chest discomfort, sharp and pressure-like in nature, 8 out of 10 at maximal intensity, nonradiating, without any associated symptoms. Pain is improved to a 3 out of 10 at the time of interview. Denied experiencing shortness of breath, nausea, diaphoresis, or dizziness. Also denied lower extremity swelling or pain, fever, chills, cough, abdominal pain, diarrhea. Denies any prior history of coronary artery disease or MIs. Chest x-ray in the emergency room revealed cardiomegaly with EKG showing A. fib with SVR at 56 bpm with findings consistent with LVH. Laboratory evaluation revealed a sodium of 133 with troponin less than 0.012. ED documentation reviewed and case discussed with ED provider. Review of systems: Pertinent positives and negatives as discussed in HPI, a complete review of systems was performed and all other systems are negative. Physical examination: Vital signs reviewed General: non toxic, no distress, appears at stated age, normal weight Derm: no unusual rashes/lesions, warm Head: atraumatic, normocephalic, symmetric Eyes: EOMI, no lid lag, anicteric sclera, pupils equal round reactive to light ENT: Nose and ears atraumatic Neck: No cervical lymphadenopathy, trachea midline, supple Mouth: no lip lesion, mucus membranes moist Cardiovascular: S1S2 reg, grade 3 systolic murmur appreciated, positive dorsalis pedis pulse bilateral, no edema Lungs: CTA bilateral, no rhonchi, no rales, no accessory muscle use Abdominal: soft, nontender to palpation, no guarding Ext: muscle strength 5 out of 5 in all 4 extremities grossly, no gross muscle atrophy, no contractures, Neuro: CN II-XI grossly intact, no gross focal neuro deficits Psych: Alert, oriented, appropriate affect Assessment: Chest pain, rule out ACS Chronic conditions: A. fib, bicuspid aortic valve, AAA, hypertension, hyper lipidemia Imaging: Chest x-ray in the emergency room revealed cardiomegaly with EKG showing A. fib with SVR at 56 bpm with findings consistent with LVH. Data Review: Laboratory evaluation revealed a sodium of 133 with troponin less than 0.012. Plan: Cardiac monitoring Obtain Echocardiogram Cardiology consulted Trend troponin Continue with aspirin and statin Continue the remaining home medications DVT prophylaxis: Lovenox subcu The patient is admitted with an anticipated less than 2 midnight stay for evaluation of chest pain CODE STATUS: Full Code Discussed with: Patient Anticipated discharge place: Home Past Medical History Past Medical History: Atrial Fibrillation, Hyperlipidemia, Hypertension Additional Past Medical History / Comment(s): leaking cuspid heart valve, AAA History of Any Multi-Drug Resistant Organisms: None Reported Additional Past Surgical History / Comment(s): Ascending Aortic Aneurysm graft- 1999 Past Psychological History: Anxiety Smoking Status: Never smoker Past Alcohol Use History: Occasional Past Drug Use History: None Reported Medications and Allergies Home Medications Medication Instructions Recorded Confirmed Type Enalapril Maleate [Vasotec] 10 mg PO BID 03/29/15 11/06/23 History atenoloL [Tenormin] 25 mg PO DAILY 07/16/19 11/06/23 History Pravastatin Sodium [Pravachol] 20 mg PO HS 03/08/22 11/06/23 History hydrALAZINE HCL [Apresoline] 25 mg PO DAILY@1530 09/18/23 11/06/23 History Vitamin D3 (Otc, Unknown Strength) 1 dose PO DAILY 11/06/23 11/06/23 History amLODIPine [Norvasc] 2.5 mg PO DAILY@1630 11/06/23 11/06/23 History amLODIPine [Norvasc] 5 mg PO DAILY 11/06/23 11/06/23 History Allergies Allergy/AdvReac Type Severity Reaction Status Date / Time atenolol Allergy Rash/Hives, Verified 11/06/23 21:29 (Generic only, can tolerate brand name) enalapril maleate Allergy Rash/Hives, Verified 11/06/23 21:29 [From Vasotec] (Generic only, can tolerate brand name) enalaprilat dihydrate Allergy Rash/Hives, Verified 11/06/23 21:29 [From Vasotec] (Generic only, can tolerate brand name) nifedipine AdvReac Abdominal Verified 11/06/23 21:29 Pain Physical Exam Vitals: Vital Signs Temp Pulse Resp BP Pulse Ox 11/06/23 21:57 97.9 F 11/06/23 21:00 53 L 127/76 97 11/06/23 19:40 55 L 16 137/73 96 11/06/23 19:34 69 18 134/85 97 11/06/23 17:28 97.3 F L 72 18 124/74 98 Intake and Output 11/06/23 11/06/23 11/06/23 06:59 14:59 22:59 Other: Weight 80.739 kg Results CBC & Chem 7: 11/06/23 19:27 11/06/23 19:27 Labs: Abnormal Lab Results - Last 24 Hours (Table) 11/06/23 11/06/23 Range/Units 19:27 19:27 RDW 16.4 H (11.5-15.5) % Sodium 133 L (137-145) mmol/L
[2023-11-06] MEDS: ATORVASTATIN 80 MG TAB PO ONE (23:45)
[2023-11-07] MEDS: ATORVASTATIN 80 MG TAB PO ONE (00:07)
[2023-11-07] MEDS ORDERED: CAFFEINE CITRATE 60 MG/3 ML VIAL IV PRN (08:14)
[2023-11-07] MEDS ORDERED: AMINOPHYLLINE 500 MG/20 ML VIAL IV PRN (08:14)
[2023-11-07] MEDS ORDERED: REGADENOSON 0.4 MG/5 ML SYRINGE IV PRN (08:14)
[2023-11-07] MEDS ORDERED: RX INFO: IV CONTRAST WAS GIVEN 1 EACH MISC MISCELLANE PRN (08:14)
[2023-11-07 08:45] VITALS: BP 142/69; PULSE 67; TEMP 98
[2023-11-07] MEDS ORDERED: ASPIRIN 81 MG PO SCH (09:00)
[2023-11-07] MEDS ORDERED: amLODIPine 5 MG TAB PO SCH (09:00)
[2023-11-07] MEDS ORDERED: ENOXAPARIN 40 MG/0.4 ML SYRINGE SQ SCH (09:00)
[2023-11-07] MEDS ORDERED: ASPIRIN 325 MG TAB PO SCH (09:00)
[2023-11-07] MEDS ORDERED: lisinopriL 10 MG TAB PO SCH (09:00)
[2023-11-07 09:02] LABS: Chol/HDL Ratio 3.08 Ratio; LDL Cholesterol,Calculated 94.6 mg/dL (0.0-131.0); VLDL Calculation 15.36 mg/dL (5.00-40.00)
--- NOTE | 2023-11-07 10:11 | P.CRDCN ---
History of Present Illness History of present illness: HISTORY OF PRESENT ILLNESS: This is a 58-year-old male with a past medical history significant for paroxysmal atrial fibrillation, ascending aortic aneurysm repair in 2000 performed [facility], hypertension, and hyperlipidemia. Patient follows in the office with Dr. Gibbons. We have been asked to see the patient in consultation for chest pain. Patient examined at the bedside. Patient presented to the hospital with a chief complaint of chest pain. He states that he has been having chest discomfort for the past few days. He reports having a lot of stress in his life this week and states that he believes the pain is related to stress. He states the pain is not exertionally related. He denied any dizziness or lightheadedness. At the time of examination, patient denies any chest pain or pressure. He denies shortness of breath. Vital signs are stable. Telemetry reveals atrial fibrillation with controlled ventricular rate. She does report he was on anticoagulation for his atrial fibrillation however he stopped this secondary to hemorrhoids. * EKG reveals atrial fibrillation with controlled ventricular rate * Chest xray cardiomegaly * Laboratory data: Troponin negative 3 * Current home cardiac medications include amlodipine 5 mg daily and 2.5 mg in the afternoon, hydralazine 25 mg daily, Pravachol 20 mg at night, Vasotec 10 mg twice a day, and atenolol 25 mg daily. * Most recent echocardiogram obtained in September 2022 revealed ejection fraction 55%, ascending aorta is dilated, moderate stable aortic regurgitation with mild mitral regurgitation. No significant pulmonary hypertension. Bicuspid aortic valve noted. REVIEW OF SYSTEMS: At the time of my exam: CONSTITUTIONAL: Denies fever or chills. HEENT: Denies blurred vision, vision changes, or eye pain. Denies hemoptysis CARDIOVASCULAR: Denies chest pain. Denies orthopnea. Denies PND. Denies palpitations RESPIRATORY: Denies shortness of breath. GASTROINTESTINAL: Denies abdominal pain. Denies nausea or vomiting. HEMATOLOGIC: Denies bleeding disorders. GENITOURINARY: Denies any blood in urine. SKIN: Denies pruitis. Denies rash. PHYSICAL EXAM: VITAL SIGNS: Reviewed. GENERAL: Well-developed in no acute distress. HEENT: Head is normocephalic. Pupils are equal, round. Sclerae anicteric. Mucous membranes of the mouth are moist. Neck supple. No JVD or thyromegaly LUNGS: Respirations even and unlabored. Lungs essentially clear to auscultation bilaterally. HEART: Irregular rate and rhythm. S1 and S2 heard. Diastolic heart murmur noted. ABDOMEN: Soft. Nondistended. Nontender. EXTREMITIES: Normal range of motion. No clubbing or cyanosis. Peripheral pulses intact. No lower extremity edema NEUROLOGIC: Awake and alert. Oriented x 3. ASSESSMENT: Chest pain, troponins negative 3 History of ascending aortic aneurysm repair in 1999, performed [facility] Bicuspid aortic valve Paroxysmal atrial fibrillation Hypertension Hyperlipidemia PLAN: An acute coronary event has been ruled out Obtain 2-D echo to assess cardiac structure and function Resume home cardiac medications Patient not on anticoagulation on an outpatient basis secondary to hemorrhoids (per patient) Obtain CT angio to evaluate aorta due to history of aneurysm repair Recommend Lexiscan stress test to assess for ischemia. Patient is refusing any type of stress test to be performed today. Further recommendations pending patient's course Nurse practitioner note has been reviewed by physician. Signing provider agrees with the documented findings, assessment, and plan of care. Past Medical History Past Medical History: Atrial Fibrillation, Hyperlipidemia, Hypertension Additional Past Medical History / Comment(s): leaking cuspid heart valve, AAA History of Any Multi-Drug Resistant Organisms: None Reported Additional Past Surgical History / Comment(s): Ascending Aortic Aneurysm graft- 1999 Past Anesthesia/Blood Transfusion Reactions: No Reported Reaction Past Psychological History: Anxiety Smoking Status: Never smoker Past Alcohol Use History: Occasional Past Drug Use History: None Reported Medications and Allergies Home Medications Medication Instructions Recorded Confirmed Type Enalapril Maleate [Vasotec] 10 mg PO BID 03/29/15 11/06/23 History atenoloL [Tenormin] 25 mg PO DAILY 07/16/19 11/06/23 History Pravastatin Sodium [Pravachol] 20 mg PO HS 03/08/22 11/06/23 History hydrALAZINE HCL [Apresoline] 25 mg PO DAILY@1530 09/18/23 11/06/23 History Vitamin D3 (Otc, Unknown Strength) 1 dose PO DAILY 11/06/23 11/06/23 History amLODIPine [Norvasc] 2.5 mg PO DAILY@1630 11/06/23 11/06/23 History amLODIPine [Norvasc] 5 mg PO DAILY 11/06/23 11/06/23 History Allergies Allergy/AdvReac Type Severity Reaction Status Date / Time atenolol Allergy Rash/Hives, Verified 11/06/23 21:29 (Generic only, can tolerate brand name) enalapril maleate Allergy Rash/Hives, Verified 11/06/23 21:29 [From Vasotec] (Generic only, can tolerate brand name) enalaprilat dihydrate Allergy Rash/Hives, Verified 11/06/23 21:29 [From Vasotec] (Generic only, can tolerate brand name) nifedipine AdvReac Abdominal Verified 11/06/23 21:29 Pain Physical Exam Vitals: Vital Signs Temp Pulse Pulse Resp BP BP Pulse Ox 11/07/23 07:00 98.0 F 67 16 142/69 97 11/07/23 02:00 97.9 F 55 L 16 153/81 98 11/06/23 23:26 66 11/06/23 22:18 98.1 F 66 16 141/76 96 11/06/23 21:57 97.9 F 11/06/23 21:00 53 L 127/76 97 11/06/23 19:40 55 L 16 137/73 96 11/06/23 19:34 69 18 134/85 97 11/06/23 17:28 97.3 F L 72 18 124/74 98 Intake and Output 11/06/23 11/07/23 11/07/23 22:59 06:59 14:59 Other: Voiding Method Toilet # Voids 1 Weight 80.739 kg Results 11/06/23 19:27 11/06/23 19:27 Cardiac Enzymes 11/06/23 11/06/23 11/06/23 Range/Units 19:27 19:27 22:37 AST 23 (17-59) U/L Troponin I <0.012 <0.012 (0.000-0.034) ng/mL 11/07/23 Range/Units 00:45 AST (17-59) U/L Troponin I <0.012 (0.000-0.034) ng/mL Coagulation 11/06/23 Range/Units 19:27 PT 10.5 (10.0-12.5) sec APTT 23.4 (22.0-30.0) sec Lipids 11/07/23 Range/Units 05:50 Triglycerides 76.80 (0.00-149.00) mg/dL Cholesterol 163.00 (0.00-200.00) mg/dL HDL Cholesterol 53.00 (40.00-60.00) mg/dL Cholesterol/HDL Ratio 3.08 Ratio CBC 11/06/23 Range/Units 19:27 WBC 5.2 (3.8-10.6) k/uL RBC 4.73 (4.30-5.90) m/uL Hgb 13.1 (13.0-17.5) gm/dL Hct 40.2 (39.0-53.0) % Plt Count 303 (150-450) k/uL Comprehensive Metabolic Panel 11/06/23 Range/Units 19:27 Sodium 133 L (137-145) mmol/L Potassium 4.6 (3.5-5.1) mmol/L Chloride 102 (98-107) mmol/L Carbon Dioxide 22 (22-30) mmol/L BUN 13 (9-20) mg/dL Creatinine 0.85 (0.66-1.25) mg/dL Glucose 93 (74-99) mg/dL Calcium 9.4 (8.4-10.2) mg/dL AST 23 (17-59) U/L ALT 23 (4-49) U/L Alkaline Phosphatase 70 (38-126) U/L Total Protein 6.9 (6.3-8.2) g/dL Albumin 4.2 (3.5-5.0) g/dL Current Medications Generic Name Dose Route Start Last Admin Trade Name Freq PRN Reason Stop Dose Admin Aminophylline 100 mg 11/07/23 08:14 Aminophylline 500 Mg/20 Ml Vial IV 11/07/23 12:15 ONCE PRN Patient Response Amlodipine Besylate 5 mg 11/07/23 09:00 Amlodipine 5 Mg Tab PO DAILY [facility] Amlodipine Besylate 2.5 mg 11/07/23 16:30 Amlodipine 2.5 Mg Tab PO DAILY@1630 [facility] Aspirin 81 mg 11/07/23 09:00 Aspirin 81 Mg PO DAILY [facility] Atenolol 25 mg 11/08/23 09:00 Atenolol 25 Mg Tab PO DAILY [facility] Atorvastatin Calcium 80 mg 11/07/23 21:00 Atorvastatin [address] [facility] Caffeine Citrate 60 mg 11/07/23 08:14 Caffeine Citrate 60 Mg/3 Ml Vial IV 11/07/23 12:15 ONCE PRN Patient Response Enoxaparin Sodium 40 mg 11/07/23 09:00 Enoxaparin 40 Mg/0.4 Ml Syringe SQ DAILY [facility] Hydralazine HCl 25 mg 11/07/23 15:30 Hydralazine Hcl 25 Mg Tab PO DAILY@1530 [facility] Lisinopril 10 mg 11/07/23 09:00 Lisinopril 10 Mg Tab PO BID [facility] Miscellaneous Information 1 each 11/07/23 08:14 Rx Info: Iv Contrast Was Given 1 Each Misc MISCELLANE 11/09/23 08:14 DAILY PRN Per Protocol Nitroglycerin 0.4 mg 11/06/23 20:51 Nitroglycerin Sl Tabs 0.4 Mg Tab SUBLINGUAL Q5M PRN Chest Pain Regadenoson 0.4 mg 11/07/23 08:14 Regadenoson 0.4 Mg/5 Ml Syringe IV 11/07/23 12:15 ONCE PRN Per Protocol Intake and Output 11/06/23 11/07/23 11/07/23 22:59 06:59 14:59 Other: Voiding Method Toilet # Voids 1 Weight 80.739 kg 11/06/23 19:27 11/06/23 19:27
--- NOTE | 2023-11-07 13:14 | P.DS ---
Providers Date of admission: 11/06/23 20:51 Expected date of discharge: 11/07/23 Attending physician: Uriah Crespo MD Consults: 11/06/23 20:51 Consult Physician Urgent Consulting Provider: Hermelinda Francois Consult Reason/Comments: chest pain Do you want consulting provider notified?: Yes Primary care physician: Morteza Briones DO Hospital Course: Patient left AMA. Patient Condition at Discharge: Undetermined Plan - Discharge Summary Discharge Rx Participant: No New Discharge Prescriptions: No Action Enalapril Maleate [Vasotec] 10 mg PO BID atenoloL [Tenormin] 25 mg PO DAILY hydrALAZINE HCL [Apresoline] 25 mg PO DAILY@1530 amLODIPine [Norvasc] 5 mg PO DAILY Pravastatin Sodium [Pravachol] 20 mg PO HS amLODIPine [Norvasc] 2.5 mg PO DAILY@1630 Vitamin D3 (Otc, Unknown Strength) 1 dose PO DAILY Discharge Medication List Enalapril Maleate [Vasotec] 10 mg PO BID 03/29/15 [History] atenoloL [Tenormin] 25 mg PO DAILY 07/16/19 [History] Pravastatin Sodium [Pravachol] 20 mg PO HS 03/08/22 [History] hydrALAZINE HCL [Apresoline] 25 mg PO DAILY@1530 09/18/23 [History] Vitamin D3 (Otc, Unknown Strength) 1 dose PO DAILY 11/06/23 [History] amLODIPine [Norvasc] 2.5 mg PO DAILY@1630 11/06/23 [History] amLODIPine [Norvasc] 5 mg PO DAILY 11/06/23 [History] Follow up Appointment(s)/Referral(s): Morteza Briones DO [Primary Care Provider] - 1-2 days
--- NOTE | 2023-11-07 13:14 | P.PN ---
Subjective Progress Note Date: 11/07/23 Hospital Course: 58-year-old male with a PMH of bicuspid aortic valve, A. fib not on an ticoagulation (patient reports due to haemorrhoids), AAA, HTN, and HLD who presents to the ED with complaints of chest pain. Chest x-ray in the emergency room revealed cardiomegaly with EKG showing A. fib with SVR at 56 bpm with findings consistent with LVH. Laboratory evaluation revealed a sodium of 133 with troponin less than 0.012. Cardiology consulted. Troponin negative 3. Recommending CT angiogram to evaluate aorta, echocardiogram and Lexiscan stress test. Subjective: Patient seen and examined at bedside. No acute events overnight. Denies any further chest pain. Pertinent positives and negatives as discussed above, a complete review of systems was performed and all other systems are negative. Vitals Signs Reviewed. General: nontoxic, no distress, appears at stated age Derm: warm, dry Head: atraumatic, normocephalic, symmetric Eyes: EOMI, no lid lag, anicteric sclera Mouth: no lip lesion, mucus membranes moist Cardiovascular: S1S2 reg, no murmur Lungs: CTA bilateral, no rhonchi, no rales , no accessory muscle use Abdominal: soft, nontender to palpation, no guarding, no appreciable organomegaly Ext: no gross muscle atrophy, no edema, no contractures Neuro: CN II-XI grossly intact, no focal neuro deficits Psych: Alert, oriented, appropriate affect Data Reviewed Today: Pertinent Labs: Troponin negative 3, total cholesterol 163, LDL 94.6 Imaging: CTA independently interpreted, dilated aortic root and ascending aorta, no obvious dissection Assessment and Plan: Patient needs close monitoring. Prognosis guarded. Chest pain, atypical Bicuspid Aortic valve AAA Paroxysmal atrial fibrillation Hypertension Dyslipidemia -cardio note reviewed, echo and lexiscan stress test pending -CTA pending report -unlikely to be ACS -Continue amlodipine 7.5, atenolol 25, enalapril 10 mg twice a day, hydralazine 25 -Continue aspirin 81 mg, atorvastatin 80 mg DVT ppx: Lovenox Code status: Full code Anticipated discharge place: Pending clinical course Anticipated discharge time: Pending clinical course Objective - Vital Signs Vital signs: Vital Signs Temp 98.0 F 11/07/23 07:00 Pulse 67 11/07/23 07:00 Resp 16 11/07/23 07:00 BP 142/69 11/07/23 07:00 Pulse Ox 97 11/07/23 07:00 FiO2 Intake & Output 11/06/23 11/07/23 11/07/23 18:59 06:59 18:59 Weight 80.739 kg 80.739 kg Other: Voiding Method Toilet # Voids 1 - Labs CBC & Chem 7: 11/06/23 19:27 11/06/23 19:27 Labs: Abnormal Lab Results - Last 24 Hours (Table) 11/06/23 11/06/23 Range/Units 19:27 19:27 RDW 16.4 H (11.5-15.5) % Sodium 133 L (137-145) mmol/L
[2023-11-07] MEDS ORDERED: hydrALAZINE HCL 25 MG TAB PO SCH (15:30)
[2023-11-07] MEDS ORDERED: amLODIPine 2.5 MG TAB PO SCH (16:30)
[2023-11-07] MEDS ORDERED: ATORVASTATIN 80 MG TAB PO SCH (21:00)
[2023-11-08] MEDS ORDERED: atenoloL 25 MG TAB PO SCH (09:00)
--- NOTE | 2023-11-08 10:08 | CT ---
EXAMINATION TYPE: CT angio chest, without and with contrast DATE OF EXAM: 11/07/2023 COMPARISON: 07/12/2023 HISTORY: 58 year-old male chest pain and history of aneurysm repair, chest pain h/o aneurysm TECHNIQUE: Contiguous axial scanning of the chest before and after the administration of 100 mL of Is ovue 370. Coronal/sagittal reconstructions performed. 3-D reconstructions generated on a dedicated [employer] workstation. CT DLP: 538.6mGycm. Automatic exposure control utilized for a dose reduction. FINDINGS: Sternotomy wires. Suspect interposition graft at the aortic bruit and proximal to mid ascending aorta . Aortic root measures 4.8 cm versus 4.7 cm, previously. Proximal arch mildly aneurysmal 4.6 cm versus 4.5 cm, previously. Conventional arterial supply bridging anatomy. Upper descending thoracic aorta is ectatic at 3.5 cm, unchanged. After IV contrast administration, no aortic dissection is seen. No abnormal perigraft fluid. Borderline to mildly enlarged caliber to the main right and left pulmonary arteries measuring up to 2 .6 cm suggesting underlying pulmonary arterial hypertension. Couple borderline-sized hilar nodes measuring up to 1.1 cm remains unchanged. No increasing thoracic adenopathy. Mild diffuse bronchial wall thickening. Minimal emphysematous change. No consolidation or pleural eff usion. Bones: Mild degenerative disc disease mid to lower thoracic spine. IMPRESSION: 1. There appears to be an interposition graft at the aortic root and proximal to mid ascending aorta. Aortic root fairly stable (compared to 07/12/2023) at 4.8 cm versus 4.7 cm, previously. Proximal arch aneurysmal at 4.6 cm versus 4.5 cm, previously. Similar ectatic upper descending thoracic aorta at 3 .5 cm. No abnormal perigraft fluid or dissection is seen. 2. COPD with mild emphysema. There may be underlying pulmonary arterial hypertension.
== END 2023-11-07 12:52 | disposition left against medical advice (07) ==
LOC: EC 16:53 → 6NMEDSUR 20:51
PROVIDERS: ADMIT Internal Medicine; ATTEND Internal Medicine
DX: R07.89 Other chest pain (principal); I48.0 Paroxysmal atrial fibrillation; I10 Essential (primary) hypertension; E78.5 Hyperlipidemia, unspecified; F41.9 Anxiety disorder, unspecified; Q23.1 Congenital insufficiency of aortic valve; I71.21 Aneurysm of the ascending aorta, without rupture; Z79.01 Long term (current) use of anticoagulants; Z79.82 Long term (current) use of aspirin; Z79.899 Other long term (current) drug therapy; Z53.29 Procedure and treatment not carried out because of patient's decision for other reasons
CPT/HCPCS: 96372; 99285; 36415; 93005; 80061; 80053; 83735; 84484 ×2; 85025; 85610; 85730; 71046; 71275; G0378 ×2; J1650; Q9967